=== PATIENT | female | born 1930 | race Caucasian/White ===

== ENCOUNTER 2017-03-22 11:55 | Inpatient (IN) ==
--- NOTE | 2017-03-22 12:39 | Emergency Department Note ---
Disposition Clinical Impression: GI bleed Qualifiers: GI bleed type/associated pathology: unspecified gastrointestinal hemorrhage type Qualified Code(s): K92.2 - Gastrointestinal hemorrhage, unspecified Anemia Qualifiers: Anemia type: other cause Other causes of anemia: other cause, not classified Qualified Code(s): D64.89 - Other specified anemias Renal failure, chronic Qualifiers: Chronic kidney disease stage: stage 3 (moderate) Qualified Code(s): N18.3 - Chronic kidney disease, stage 3 (moderate) Disposition: Admitted As Inpatient Referrals: NO,PCP [Primary Care Provider] - Forms: ED Satisfaction Letter Female Urogenital HPI - General Chief complaint: ED Vaginal Bleeding Stated complaint: Vaginal Bleeding Time Seen by Provider: 03/22/17 12:14 Source: patient, EMS Limitations: no limitations Nursing Notes Reviewed: Yes Vital Signs Reviewed: Yes - History of Present Illness HPI Narrative: Patient does have dementia and is not able to give adequate history secondary to her medical condition. I did see the patient immediately upon arrival and also spoke with the paramedics who states the patient did have a large amount of vaginal bleeding which is why she was sent here. The patient said she is here because of left hip pain and states that this is not a new pain. She thinks she is at the long-term still at [facility]. She denies any abdominal pain - Related Data Home Medications Medication Instructions Recorded Confirmed Carvedilol [Carvedilol] BID 02/20/17 Cholecalciferol (Vitamin D3) 2,000 unit PO 02/20/17 [Vitamin D] Furosemide [Lasix] 02/20/17 Lutein Extract/Zeaxanthin Ext 02/20/17 [Lutein 15 mg Softgel] Magnesium Oxide [Magnesium Oxide] 02/20/17 Multivit-Min/FA/Lycopen/Lutein 02/20/17 [Centrum Silver Tablet] Potassium [Potassium] 2 tab 02/20/17 Pyridoxine HCl [Vitamin B-6] 02/20/17 Rutin/Quercetin/Bioflav/Bilber 02/20/17 [Bilberry Extract 40 mg Cap] hydrALAZINE [HydrALAZINE] 25 mg PO Q6HR 02/20/17 02/20/17 Previous Rx's Medication Instructions Recorded Ciprofloxacin HCl [Cipro] 500 mg PO BID #14 tablet 02/20/17 Allergies Allergy/AdvReac Type Severity Reaction Status Date / Time amlodipine Allergy Anaphylaxis Verified 02/20/17 15:38 atenolol Allergy Anaphylaxis Verified 02/20/17 15:38 codeine Allergy Weakness Verified 02/20/17 15:38 Erythromycin Base Allergy Anaphylaxis Verified 02/20/17 15:38 Oxycodone Allergy Anaphylaxis Verified 02/20/17 15:38 Penicillins Allergy Anaphylaxis Verified 02/20/17 15:27 Sulfanilamide Allergy Blister Verified 02/20/17 15:38 Tetanus Vaccines and Toxoid Allergy See Verified 02/20/17 15:38 Comments Review of Systems: Unable to obtain secondary to patient's medical condition of dementia Past Medical History - Past Medical History Medical history: Reports: atrial fibrillation, CHF, dementia, diabetes, hyperlipidemia, hypertension, osteoporosis Surgical history: Reports: breast surgery, cataract, cholecystectomy Psychiatric history: Reports: other - Social History Smoking Status: Never smoker Smokeless Tobacco Status: No Alcohol use: Reports: none Drug use: Reports: none Physical Exam Rectal exam does reveal brown stool necessary for Hemoccult. A urine straight catheter will be begun as it is likely hemorrhagic cystitis. There is no blood seen in the vaginal vault appears one drop of red blood on the depends that the area of the urethra so this will be further evaluated. The patient is resting comfortably. No distress. 1239 - General Limitations: no limitations General appearance: alert, in no apparent distress Course Vital Signs Temperature 98.1 F 03/22/17 11:59 Pulse Rate 70 03/22/17 11:59 Respiratory Rate 17 03/22/17 11:59 Blood Pressure 148/85 03/22/17 11:59 O2 Sat by Pulse Oximetry 99 03/22/17 11:59 Temperature 98.1 F 03/22/17 11:59 Pulse Rate 78 03/22/17 16:50 Respiratory Rate 16 03/22/17 16:50 Blood Pressure 164/73 03/22/17 16:50 O2 Sat by Pulse Oximetry 94 03/22/17 16:53 Oxygen Delivery Oxygen Delivery Nasal Cannula Urogenital-Female - MDM Narrative Medical decision making narrative: The patient did not have any blood in the vaginal vault. The urine does not show any evidence of blood. The stool is Hemoccult positive but brown. I did speak with the guardian who tells me that the patient had a massive amount before she arrived soaking sheet after she of her bedclothes as well as her depends. His likely GI bleed in etiology. Hemoglobin is stable but she does have anemia. She does have chronic renal failure and creatinine is not significantly changed from baseline. Vital signs are stable this time. I did speak with the hospitalist and discussed the patient for admission with consideration of GI consultation. Does likely is a lower GI bleed so she is not started on a proton pump inhibitor. She is not on anticoagulation at this time. Type and screen will be done. 1049 - Medical Records Medical records reviewed: Yes I reviewed the patient's medical records. - Lab Data Lab results reviewed: Yes I reviewed the patient's lab results. Result diagrams: 03/22/17 16:04 03/22/17 16:04 Lab Results 03/22/17 03/22/17 03/22/17 Range/Units 14:24 14:40 16:04 WBC 13.3 H (4.3-11.1) K/mcL RBC 3.06 L (3.82-4.97) M/mcL Hgb 10.5 L (11.5-15.4) g/dL Hct 31.8 L (35.3-44.9) % MCV 103.9 H (83.0-100.0) fL MCH 34.3 H (28.0-33.3) pg MCHC 33.0 (31.6-35.5) g/dL RDW 14.1 (11.5-14.5) % Plt Count 199 (140-400) K/mcL MPV 10.0 (9.4-12.4) fL Sodium (136-145) mEq/L Potassium (3.5-4.5) mEq/L Chloride (98-109) mEq/L Carbon Dioxide (19-29) mEq/L BUN (7-20) mg/dL Creatinine (0.57-1.11) mg/dL Est GFR ( Amer) (> 60) Est GFR (Non-Af Amer) (> 60) BUN/Creatinine Ratio (6-26) Glucose (70-99) mg/dL Calculated Osmolality (280-300) Calcium (8.6-10.8) mg/dL Urine Color Yellow (Yellow) Urine Clarity Cloudy A (Clear) Urine pH 6.0 (5.0-8.0) pH Units Ur Specific [place] 1.014 (1.010-1.025) Urine Protein 100 H (Neg-Trace) mg/dL Urine Glucose (UA) Normal (Normal) mg/dL Urine Ketones Negative (Negative) mg/dL Urine Blood Negative (Negative) Urine Nitrite Negative (Negative) Urine Bilirubin Negative (Negative) Urine Urobilinogen Normal (Normal) mg/dL Ur Leukocyte Esterase Negative (Negative) Urine Microscopic RBC 0-3 (0-3) per hpf Urine Microscopic WBC 0-3 (0-3) per hpf Ur Squamous Epith Cells Moderate H (None-Few) per lpf Urine Bacteria Many H (None-Few) per hpf Hyaline Casts None Seen (None-Few) per lpf Stool Occult Blood Positive A (Negative) 03/22/17 Range/Units 16:04 WBC (4.3-11.1) K/mcL RBC (3.82-4.97) M/mcL Hgb (11.5-15.4) g/dL Hct (35.3-44.9) % MCV (83.0-100.0) fL MCH (28.0-33.3) pg MCHC (31.6-35.5) g/dL RDW (11.5-14.5) % Plt Count (140-400) K/mcL MPV (9.4-12.4) fL Sodium 138 (136-145) mEq/L Potassium 3.9 (3.5-4.5) mEq/L Chloride 94 L (98-109) mEq/L Carbon Dioxide 32 H (19-29) mEq/L BUN 50 H (7-20) mg/dL Creatinine 2.58 H (0.57-1.11) mg/dL Est GFR ( Amer) 21 L (> 60) Est GFR (Non-Af Amer) 18 L (> 60) BUN/Creatinine Ratio 19 (6-26) Glucose 104 H (70-99) mg/dL Calculated Osmolality 300 (280-300) Calcium 9.0 (8.6-10.8) mg/dL Urine Color (Yellow) Urine Clarity (Clear) Urine pH (5.0-8.0) pH Units Ur Specific [place] (1.010-1.025) Urine Protein (Neg-Trace) mg/dL Urine Glucose (UA) (Normal) mg/dL Urine Ketones (Negative) mg/dL Urine Blood (Negative) Urine Nitrite (Negative) Urine Bilirubin (Negative) Urine Urobilinogen (Normal) mg/dL Ur Leukocyte Esterase (Negative) Urine Microscopic RBC (0-3) per hpf Urine Microscopic WBC (0-3) per hpf Ur Squamous Epith Cells (None-Few) per lpf Urine Bacteria (None-Few) per hpf Hyaline Casts (None-Few) per lpf Stool Occult Blood (Negative)
[2017-03-22 14:33] LABS: Bilirubin,Urine Negative (Negative); Blood,Urine Negative (Negative); Clarity,Urine Cloudy (Clear); Color,Urine Yellow (Yellow); Glucose,Urine (UA) Normal (Normal); Ketones,Urine Negative (Negative); Leukocyte Esterase,Urine Negative (Negative); Nitrite,Urine Negative (Negative); Protein,Urine 100 mg/dL (Neg-Trace); Specific Gravity,Urine 1.014 (1.010-1.025); Urobilinogen,Urine Normal (Normal)
[2017-03-22 14:36] LABS: Bacteria,Urine Many per hpf (None-Few); Hyaline Casts,Urine None Seen per lpf (None-Few); RBC,Urine 0-3 per hpf (0-3); Squamous Epithelial Cell,Urine Moderate per lpf (None-Few); WBC,Urine 0-3 per hpf (0-3)
[2017-03-22 16:13] LABS: Hematocrit 31.8 % (35.3-44.9); Hemoglobin 10.5 g/dL (11.5-15.4); Mean Corpuscular Hemoglobin 34.3 pg (28.0-33.3); Mean Corpuscular Volume 103.9 fL (83.0-100.0); Platelet Count 199 K/mcL (140-400); Red Blood Count 3.06 M/mcL (3.82-4.97); Red Cell Distribution Width 14.1 % (11.5-14.5)
[2017-03-22 16:26] LABS: Potassium 3.9 mEq/L (3.5-4.5)
[2017-03-22] MEDS ORDERED: Naloxone 0.4 MG/ML INJ IVP PRN (19:53)
[2017-03-22] MEDS ORDERED: Acetaminophen 325 MG TABLET PO PRN (19:53)
[2017-03-22] MEDS ORDERED: Levofloxacin 750 MG/150 ML 750 MG/150 ML BAG IVPB ONE (20:00)
--- NOTE | 2017-03-22 20:27 | Internal Med History&Physical ---
<VictorianoOni Gentile - Last Filed: 03/22/17 21:14> Date of Encounter: 03/22/17 Time of Encounter: 19:30 Assessment and Plan (1) GI bleed Current visit: Yes Status: Acute Assess: Mrs. Maynard presents with chief complaint of large amount of bleeding in her depends and that sheets. Patient states she has not felt well for the past several days and has vomited for the past 2 days with chills but no fever. Patient also reports abdominal pain and cramping over the same time period. Urinalysis is negative for blood, however rectal exam is positive for Hemoccult. Plan: H/H Q8 Type and screen ordered GI consult ordered and discussed with Dr. Walls who will see patient Monitor patient and vital signs Monitor patient for continued signs of bleeding Qualifiers: GI bleed type/associated pathology: unspecified gastrointestinal hemorrhage type Qualified Code(s): K92.2 - Gastrointestinal hemorrhage, unspecified (2) Weakness Current visit: Yes Status: Acute Assess: Patient presents with complaint of N/V for the past two days as well as GI bleed. Patient reports that she is weaker than usual due to current symptoms and status. Plan: Falls precautions Sg-[id number] only Bed rest with bedside commode with assist only Monitor patient (3) Leukocytosis Current visit: Yes Status: Acute Assess: Patient presents with current WBC of 13.3 on admission to ED from initial blood draw with source of infection currently unknown. Plan: Lactic acid ordered Blood cultures ordered x2 Urine culture ordered IV Levaquin 750 mg daily ordered Follow-up labs ordered Qualifiers: Leukocytosis type: unspecified Qualified Code(s): D72.829 - Elevated white blood cell count, unspecified (4) Nausea & vomiting Current visit: Yes Status: Acute Assess: Patient presents with acute nausea and vomiting over the past two days. Plan: IV Zofran ordered IV Protonix 40 mg daily ordered Clear liquid diet as tolerated Falls precautions/[id number]-[id number]/Bed rest with bedside commode with assist status due to weakness Qualifiers: Vomiting type: cyclical vomiting Vomiting Intractability: non-intractable Qualified Code(s): G43.A0 - Cyclical vomiting, not intractable (5) Atrial fibrillation Current visit: Yes Status: Chronic Assess: Patient has history of chronic atrial fibrillation. Plan: Aspirin therapy 81 mg enteric coated Continuous cardiac telemetry EKG ordered STAT Qualifiers: Atrial fibrillation type: chronic Qualified Code(s): I48.2 - Chronic atrial fibrillation (6) CHF (congestive heart failure) Current visit: Yes Status: Chronic Assess: Patient presents with history of chronic congestive heart failure. Presently, patient does not have bilateral pedal edema of the LE. Plan: Continue Lasix PO Qualifiers: Congestive heart failure type: unspecified congestive heart failure type Congestive heart failure chronicity: unspecified congestive heart failure chronicity Qualified Code(s): I50.9 - Heart failure, unspecified (7) Anemia Current visit: Yes Status: Chronic Assess: Patient presents with history of chronic anemia. Current Hgb is 10.5 and Hgb is 31.8. Plan: H/H Q8 ordered Type and screen ordered Qualifiers: Anemia type: other cause Other causes of anemia: other cause, not classified Qualified Code(s): D64.89 - Other specified anemias (8) Renal failure, chronic Current visit: Yes Status: Chronic Assess: Patient presents with chronic renal failure with current GFR 18, BUN of 50, and creatinine of 2.58 which is not far from her baseline. Plan: Judicious use of IV fluids 50 mL/HR Monitor I&O Monitor daily weight Qualifiers: Chronic kidney disease stage: stage 4 (severe) Qualified Code(s): N18.4 - Chronic kidney disease, stage 4 (severe) (9) DVT prophylaxis Current visit: Yes Status: Acute Assess: Patient to be placed on DVT prophylaxis due to admission protocol, bed rest status, and current atrial fibrillation. Pharmacologic DVT prophylaxis is contraindicated due to current GI bleeding status. Plan: SCDs ordered for LE bilaterally Internal Medicine - H&P: HPI Chief complaint: GI bleed Admitted From: Emergency Dept Plans for Post Hospital Care: Home History of present illness: Mrs. Maynard is a 86 year old female who presents from the ED with chief complaint of large amount of bleeding in her depends and that sheets. Patient states she has not felt well for the past several days and has vomited for the past 2 days with chills but no fever. Patient also reports abdominal pain and cramping over the same time period. Urinalysis is negative for blood, however rectal exam is positive for Hemoccult. Upon examination in the ED there is no blood seen in the vaginal vault. has history of anemia with recent hemoglobin level at 10.5 and hematocrit of 31.8. Patient is currently not on anticoagulation due to history of falls. Mrs. Maynard has a history of atrial fibrillation, CHF, dementia, insulin-dependent diabetes, hyperlipidemia, hypertension, anemia, and osteoporosis. She states she has left hip pain that radiates down her leg. She denies any recent illness, diarrhea, fever, generalized weakness, or shortness of breath. Patient currently has a WBC of 13.3. Patient is at high risk for further morbidity due to current GI bleed and infection of unknown source and will be placed as inpatient status with orders for continuous cardiac telemetry due to current atrial fibrillation, clear liquid diet due to nausea and vomiting, blood and urine cultures to identify infection source, IV Zofran and Protonix for GI, IV Levaquin 750 mg daily for infection coverage, H/H Q6, type and screen, iron study, and judicious use of IV fluids at 50 mL/HR, and GI consult was ordered and placed with Dr. Walls who will see patient. Patient to be monitored closely. Time spent with patient greater than 40 minutes. Past Med Surg Social Fam HX - Past Medical History Source: patient Medical history: atrial fibrillation, CHF, dementia, diabetes, hyperlipidemia, hypertension, osteoporosis Psychiatric history: other (Dementia) - Past Surgical History Surgical History: breast surgery (Bilateral mastectomies), cataract, cholecystectomy - Social History Smoking Status: Never smoker Smokeless Tobacco Status: No Alcohol use: none Drug use: none Current living situation: Home, With Family Activity Level: Uses cane/walker Recent Out of Country Travel Within the Last 8 Weeks: No Exposure or Possible Exposure to Illness During Travel: No - Family History Father Race: Family Member Ethnicity: Non- Living Status: Age at : 70 Cause of : HD Hx Family Cardiac Disorders: Yes (HD) Mother Race: Family Member Ethnicity: Non- Living Status: Age at : 92 Cause of : Complications of DM Hx Family Endocrine Disorder: Yes (DM) Sister Race: Family Member Ethnicity: Non- Living Status: Still Living Hx Family Cardiac Disorders: Yes (HD) Internal Medicine - H&P: Meds Carvedilol [Carvedilol] 12.5 mg PO BID 02/20/17 [History] Cholecalciferol (Vitamin D3) [Vitamin D] 2,000 unit PO DAILY 02/20/17 [History] Furosemide [Lasix] 40 mg PO DAILY 02/20/17 [History] Lutein Extract/Zeaxanthin Ext [Lutein 15 mg Softgel] 15 mg PO BID 02/20/17 [ History] Magnesium Oxide [Magnesium Oxide] 250 mg PO DAILY 02/20/17 [History] Multivit-Min/FA/Lycopen/Lutein [Centrum Silver Tablet] 1 tab PO DAILY 02/20/17 [ History] Potassium [Potassium] 99 mg PO DAILY 02/20/17 [History] Pyridoxine HCl [Vitamin B-6] 50 mg PO DAILY 02/20/17 [History] Rutin/Quercetin/Bioflav/Bilber [Bilberry Extract 40 mg Cap] 40 mg PO DAILY 02/20 [History] hydrALAZINE [HydrALAZINE] 25 mg PO Q6HR 02/20/17 [History] Glucosamine/D3/Boswellia Jesenia [Osteo Bi-Flex Tablet] 1 tab PO DAILY 03/22/17 [ History] Allergies amlodipine Allergy (Verified 02/20/17 15:38) Anaphylaxis atenolol Allergy (Verified 02/20/17 15:38) Anaphylaxis codeine Allergy (Verified 02/20/17 15:38) Weakness Erythromycin Base Allergy (Verified 02/20/17 15:38) Anaphylaxis Oxycodone Allergy (Verified 02/20/17 15:38) Anaphylaxis Penicillins Allergy (Verified 02/20/17 15:27) Anaphylaxis Sulfanilamide Allergy (Verified 02/20/17 15:38) Blister Tetanus Vaccines and Toxoid Allergy (Verified 02/20/17 15:38) See Comments All Systems PM: A 10-system review of systems was performed and is negative for pertinent findings except as documented above in the HPI. - Constitutional Constitutional: as per HPI, chills, falls, no fever(s), no night sweats - EENT Eyes: no change in vision, no discharge, no pain, no photophobia Ears: no ear discharge, no ear pain, no tinnitus Nose, mouth and throat: no dysphagia, no nasal discharge, no neck pain, no sore throat - Breasts Breasts: as per HPI - Cardiovascular Cardiovascular ROS IM: as per HPI, irregular heart rhythm, no chest pain, no diaphoresis, no dyspnea, no lightheadedness, no palpitations, no syncope - Respiratory Respiratory: no cough, no dyspnea, no wheezing, no excessive phlegm production - Gastrointestinal Gastrointestinal: as per HPI, abdominal pain, constipation, hematochezia, nausea , vomiting - Genitourinary Genitourinary: as per HPI, urinary incontinence, no change in urinary stream, no dysuria, no flank pain, no hematuria Menstruation: as per HPI, post menopausal - Musculoskeletal Musculoskeletal ROS IM: as per HPI, other (Left hip pain) - Integumentary Integumentary IM: no rash, no unusual bruising - Neurological Neurological ROS: as per HPI, confusion, frequent falls - Psychiatric Psychiatric: as per HPI - Endocrine Endocrine IM: as per HPI - Hematologic/Lymphatic Hematologic/Lymphatic: no easy bruising - Allergic/Immunologic Allergic/Immunologic: as per HPI - Constitutional Vitals: Temp Pulse Resp BP Pulse Ox 98.7 F 70 15 155/70 97 03/22/17 19:54 03/22/17 19:54 03/22/17 19:54 03/22/17 19:54 03/22/17 19:54 General appearance: Present: cooperative, A&O X 2, pleasant, no acute distress, answers questions appropriately (With several attempts) - Head Head exam: Present: atraumatic, normocephalic - Eye Eye exam: Present: PERRL, conjuntiva pink, sclera anicteric Pupils: Present: PERRL - ENT ENT exam: Present: normal exam, normal external ear exam - Neck Neck exam general surgery: Present: supple, trachea midline. Absent: lymphadenopathy - Respiratory Respiratory exam: Present: CTAB. Absent: accessory muscle use, rales, rhonchi, wheezes - Cardiovascular Cardiovascular exam: Present: irregular rhythm - GI/Abdominal GI/Abdominal exam: Present: guarding, tenderness - Rectal Rectal exam: Present: deferred - Additional comments: exam deferred. - Extremities Exam Extremities exam: Present: warm, radial pulses palpable and symetrical. Absent : calf tenderness, cyanotic, pedal edema - Back Exam Back exam: Present: normal inspection - Neurological Exam Neurological exam: Present: alert, altered, strengths equal and symetr throughout - Psychiatric Psychiatric exam: Present: normal affect, normal mood - Skin Skin exam: Present: dry, intact Internal Med - H&P Results - Labs CBC & Chem 7: 03/22/17 20:40 03/22/17 16:04 <[email or web address] - Last Filed: 03/22/17 22:23> Date of Encounter: 03/22/17 Internal Medicine - H&P: HPI History of present illness: Ms. Maynard is a 86 year old female All Systems PM: A 10-system review of systems was performed and is negative for pertinent findings except as documented above in the HPI. - Constitutional Vitals: Temp Pulse Resp BP Pulse Ox 98.7 F 70 15 155/70 97 03/22/17 19:54 03/22/17 19:54 03/22/17 19:54 03/22/17 19:54 03/22/17 19:54 Internal Med - H&P Results - Labs CBC & Chem 7: 03/22/17 20:40 03/22/17 16:04 Labs: Short CBC 03/22/17 Range/Units 20:40 Hgb 10.6 L (11.5-15.4) g/dL Hct 31.7 L (35.3-44.9) % - Attending Attestation I have seen and examined the patient around 8:15 PM. I discussed about the patient with nurse practitioner Oni Pastrana. I reviewed the orders and the note. Patient is a 86-year-old female who presented to the ED from [facility] for large amount of bleeding is seen today in her depends and sheets. Patient has a past medical history of atrial fibrillation, CHF, dementia, diabetes, hyperlipidemia, hypertension and osteoporosis. On examination patient is awake and alert. Not in any distress. She is able to answer some questions appropriately. She does have dementia. Patient does complain of having a few episodes of vomiting over the past few days, but denies fever. Patient denies chest pain denies shortness of breath denies dizziness denies palpitations denies abdominal pain or any other problems. Patient's fecal Hemoccult is positive. Her H&H is 10.6 and 31.7. We will monitor her H&H and will watch for any further bleeding. Patient is hemodynamically stable at present. We will continue all home medications. No family members at the time of admission. CODE STATUS discussed with patient, and she states she does not want to be resuscitated. She is a DNR/DNI status. Heart rate 70, blood pressure 154/70, O2 sat 97% on 2 L O2, heart S1-S2 positive , lungs bilateral good entry no wheezes or crackles. Abdomen soft nontender with no masses or guarding, extremities no edema. Patient is being admitted for GI bleed. Gastroenterology consult.
[2017-03-22] MEDS ORDERED: 0.9 % Sodium Chloride 1,000 ML IVC SCH (20:45)
[2017-03-22 21:08] LABS: Hematocrit 31.7 % (35.3-44.9); Hemoglobin 10.6 g/dL (11.5-15.4)
[2017-03-22] MEDS ORDERED: Aspirin Enteric Coated 81 MG Tablet PO SCH (21:15)
[2017-03-22 21:24] LABS: % Iron Saturation 9 % (15-50); Iron 19 mcg/dL (50-170); Transferrin 153 mg/dL (180-382)
[2017-03-22] MEDS: Pantoprazole 40 MG VIAL IVP SCH (21:42)
[2017-03-23] MEDS: hydrALAZINE 25 MG TABLET PO SCH ×4 (01:26→18:06)
[2017-03-23 06:19] LABS: Basophils % 0.4 %; Eosinophils # 0.1 K/mcL (0.0-0.6); Eosinophils % 0.6 %; Hematocrit 27.9 % (35.3-44.9); Hemoglobin 9.3 g/dL (11.5-15.4); Immature Granulocytes % 0.6 % (0-4); Lymphocytes % 9.5 %; Mean Corpuscular HGB Conc 33.3 g/dL (31.6-35.5); Mean Corpuscular Hemoglobin 34.4 pg (28.0-33.3); Mean Corpuscular Volume 103.3 fL (83.0-100.0); Monocytes # 0.9 K/mcL (0.0-1.3); Monocytes % 8.5 %; Neutrophils # 8.7 K/mcL (1.6-8.9); Platelet Count 149 K/mcL (140-400); Red Cell Distribution Width 14.1 % (11.5-14.5); Segmented Neutrophils % 80.4 %
[2017-03-23 06:22] LABS: INR 1.2; Prothrombin Time 13.5 Seconds (9.4-12.1)
[2017-03-23 06:24] LABS: Activated Partial Thrombo Time 26.7 Seconds (26.0-36.0)
[2017-03-23 06:33] LABS: Albumin 2.5 g/dL (3.5-5.0); Albumin/Globulin Ratio 0.7 (1.1-2.2); Bilirubin,Total 0.6 mg/dL (0.2-1.2); Calcium 8.3 mg/dL (8.6-10.8); Chol/HDL Ratio 4.5 (0-4.9); Globulin 3.5 g/dL (2.4-3.5); Potassium 3.6 mEq/L (3.5-4.5)
--- NOTE | 2017-03-23 08:05 | Internal Medicine Consult Note ---
Date of Encounter: 03/23/17 Time of Encounter: 08:03 - Assessment and Plan (1) GI bleed Current Visit: Yes Status: Acute Assessment and plan: There is melanotic to maroon stool on the glove with rectal exam..She has verbally consented the procedures, but have placed a call to the Daughter.. I have discussed risks of procedures with the patient and believe she understands. Qualifiers: GI bleed type/associated pathology: unspecified gastrointestinal hemorrhage type Qualified Code(s): K92.2 - Gastrointestinal hemorrhage, unspecified (2) Anemia Current Visit: Yes Status: Acute Assessment and plan: This is most likely acute on chronic with Blood Loss anemia Qualifiers: Anemia type: other cause Other causes of anemia: other cause, not classified Qualified Code(s): D64.89 - Other specified anemias (3) Atrial fibrillation Current Visit: Yes Status: Chronic Qualifiers: Atrial fibrillation type: chronic Qualified Code(s): I48.2 - Chronic atrial fibrillation (4) CKD (chronic kidney disease) stage 4, GFR 15-29 ml/min Current Visit: Yes Status: Acute (5) Dementia Current Visit: Yes Status: Acute Qualifiers: Dementia type: Alzheimer's disease Qualified Code(s): G30.1 - Alzheimer's disease with late onset; F02.80 - Dementia in other diseases classified elsewhere without behavioral disturbance Internal Medicine - CN: HPI - Data of Consult Patient: new to practice Requesting Physician: Fabian Donis MD - Consult Narrative Reason for consult: Possible GI Bleeding History of present illness: Ms. Maynard is a 86 year old female who presented from [facility] with what may be GI bleeding.. apparently there was blood on sheets at the ECF, then brown hemocult positive stool in the ED.. Mrs. Maynard is a poor historian really unable to give much information. Past Med Surg Social Fam HX - Past Medical History Medical history: atrial fibrillation, CHF, dementia, diabetes, hyperlipidemia, hypertension, osteoporosis Psychiatric history: other - Past Surgical History Surgical History: breast surgery, cataract, cholecystectomy - Social History Smoking Status: Never smoker Smokeless Tobacco Status: No Alcohol use: none Drug use: none - Family History Father Race: Family Member Ethnicity: Non- Living Status: Age at : 70 Cause of : HD Hx Family Cardiac Disorders: Yes (HD) Mother Race: Family Member Ethnicity: Non- Living Status: Age at : 92 Cause of : Complications of DM Hx Family Endocrine Disorder: Yes (DM) Sister Adopted: No Race: Family Member Ethnicity: Non- Twin of Family Member: Yes, Identical Living Status: Cause of : diabetes and heart attack Hx Family Cardiac Disorders: Yes Hx Family Respiratory Disorders: Yes Hx Family Cancer: No Hx Family GI Disorders: No Hx Family Genitourinary Disorders: No Hx Family Endocrine Disorder: Yes Hx Family Musculoskeletal Disorders: No Hx Family Neuromuscular Disorders: No Hx Family Neurologic Disorders: No Hx Family HEENT Disorders: No Hx Family Autoimmune Disorders: No Hx Family Reproductive Disorders: No Hx Family Psychosocial Disorders: No Hx Family Medical Disorders: No ROS unobtainable: due to mental status Internal Medicine - CN: Meds Carvedilol [Carvedilol] 12.5 mg PO BID 02/20/17 [History] Cholecalciferol (Vitamin D3) [Vitamin D] 2,000 unit PO DAILY 02/20/17 [History] Furosemide [Lasix] 40 mg PO DAILY 02/20/17 [History] Lutein Extract/Zeaxanthin Ext [Lutein 15 mg Softgel] 15 mg PO BID 02/20/17 [ History] Magnesium Oxide [Magnesium Oxide] 250 mg PO DAILY 02/20/17 [History] Multivit-Min/FA/Lycopen/Lutein [Centrum Silver Tablet] 1 tab PO DAILY 02/20/17 [ History] Potassium [Potassium] 99 mg PO DAILY 02/20/17 [History] Pyridoxine HCl [Vitamin B-6] 50 mg PO DAILY 02/20/17 [History] Rutin/Quercetin/Bioflav/Bilber [Bilberry Extract 40 mg Cap] 40 mg PO DAILY 02/20 [History] hydrALAZINE [HydrALAZINE] 25 mg PO Q6HR 02/20/17 [History] Glucosamine/D3/Boswellia Jesenia [Osteo Bi-Flex Tablet] 1 tab PO DAILY 03/22/17 [ History] Allergies amlodipine Allergy (Verified 02/20/17 15:38) Anaphylaxis atenolol Allergy (Verified 02/20/17 15:38) Anaphylaxis codeine Allergy (Verified 02/20/17 15:38) Weakness Erythromycin Base Allergy (Verified 02/20/17 15:38) Anaphylaxis Oxycodone Allergy (Verified 02/20/17 15:38) Anaphylaxis Penicillins Allergy (Verified 02/20/17 15:27) Anaphylaxis Sulfanilamide Allergy (Verified 02/20/17 15:38) Blister Tetanus Vaccines and Toxoid Allergy (Verified 02/20/17 15:38) See Comments Internal Medicine - CN: Exam - Constitutional Vitals: Temp Pulse Resp BP Pulse Ox 98.7 F 67 14 104/62 99 03/23/17 07:13 03/23/17 07:13 03/23/17 07:13 03/23/17 07:13 03/23/17 07:13 General appearance IM: Present: A&O X 1, pleasant, obese. Absent: no acute distress - Respiratory Respiratory exam: Present: rhonchi Additional comments: Rhonchi to the L base. - Cardiovascular Cardiovascular exam IM: Present: irregular rhythm - GI/Abdominal GI/Abdominal exam IM: Present: firm, hypoactive bowel sounds, no peritoneal signs. Absent: guarding - Rectal Rectal exam: Present: deferred, black stool Internal Medicine - CN: Reslt - Labs CBC & Chem 7: 03/23/17 06:09 03/23/17 06:09 Labs: Short CBC 03/22/17 03/23/17 Range/Units 20:40 06:09 WBC 10.8 (4.3-11.1) K/mcL Hgb 10.6 L 9.3 L (11.5-15.4) g/dL Hct 31.7 L 27.9 L (35.3-44.9) % Plt Count 149 (140-400) K/mcL Neutrophils # 8.7 (1.6-8.9) K/mcL BMP 03/23/17 06:09 Sodium 139 Potassium 3.6 Chloride 97 L Carbon Dioxide 33 H BUN 48 H Creatinine 2.52 H Glucose 80 Calcium 8.3 L Liver Function 03/23/17 Range/Units 06:09 Total Bilirubin 0.6 (0.2-1.2) mg/dL AST 21 (5-34) Units/L ALT 7 (0-55) Units/L Alkaline Phosphatase 47 (38-126) Units/L Albumin 2.5 L (3.5-5.0) g/dL - ABG Interpretation ABG results: PT/INR, D-dimer PT 13.5 Seconds (9.4-12.1) H 03/23/17 06:09 Consult Discharge Plan - Plan Instructions: Heart Failure (DC) Referrals: Oni Garg, RENETTA [Advanced Practice Nurse] -
[2017-03-23] MEDS ORDERED: SODIUM CHLORIDE/NAHCO3/KCL/PEG 4,000 ML SOLN.RECON PO ONE (08:15)
[2017-03-23] MEDS: Magnesium Oxide 400 MG TABLET PO SCH (08:40)
[2017-03-23] MEDS: Pantoprazole 40 MG VIAL IVP SCH (08:40)
[2017-03-23] MEDS: Furosemide 40 MG TABLET PO SCH (08:40)
[2017-03-23] MEDS ORDERED: Iron Dextran Complex 100 MG in 0.9 % Sodium Chloride 500 ML IVPB ONE (08:54)
[2017-03-23] MEDS ORDERED: Pyridoxine (B-6) 50 MG TABLET PO SCH (09:00)
[2017-03-23] MEDS ORDERED: Cholecalciferol (D-3) 1,000 UNIT TABLET PO SCH (09:00)
--- NOTE | 2017-03-23 17:38 | Internal Med Progress Note ---
Date of Encounter: 03/23/17 Time of Encounter: 17:36 - Assessment and plan (1) GI bleed Current Visit: Yes Status: Acute Qualifiers: GI bleed type/associated pathology: unspecified gastrointestinal hemorrhage type Qualified Code(s): K92.2 - Gastrointestinal hemorrhage, unspecified (2) Anemia Current Visit: Yes Status: Acute Qualifiers: Anemia type: other cause Other causes of anemia: other cause, not classified Qualified Code(s): D64.89 - Other specified anemias (3) Renal failure, chronic Current Visit: Yes Status: Chronic Qualifiers: Chronic kidney disease stage: stage 4 (severe) Qualified Code(s): N18.4 - Chronic kidney disease, stage 4 (severe) (4) Atrial fibrillation Current Visit: Yes Status: Chronic Qualifiers: Atrial fibrillation type: chronic Qualified Code(s): I48.2 - Chronic atrial fibrillation (5) CHF (congestive heart failure) Current Visit: Yes Status: Chronic Qualifiers: Congestive heart failure type: unspecified congestive heart failure type Congestive heart failure chronicity: unspecified congestive heart failure chronicity Qualified Code(s): I50.9 - Heart failure, unspecified (6) DVT prophylaxis Current Visit: Yes Status: Acute - Subjective Interval history: Carla Maynard is a 86-year-old female admitted for GI bleed. She presents from the ED with chief complaint of large amount of bleeding in her depends and that sheets. Patient states she has not felt well for the past several days and has vomited for the past 2 days with chills but no fever. Patient also reports abdominal pain and cramping over the same time period. Urinalysis is negative for blood, however rectal exam is positive for Hemoccult patient is a poor historian. Hemoglobin is essentially unchanged in drop overnight from 10-9 while she is on IV fluid. Examination is unremarkable. - Constitutional Vitals: Temp Pulse Resp BP Pulse Ox 97.4 F L 70 14 132/62 96 03/23/17 14:47 03/23/17 14:47 03/23/17 14:47 03/23/17 14:47 03/23/17 14:47 General appearance: Present: A&O X 1, pleasant, obese. Absent: no acute distress - Head Head exam: Present: atraumatic, normocephalic - Eye Eye exam: Present: PERRL, conjuntiva pink, sclera anicteric Pupils: Present: PERRL - Neck Neck exam general surgery: Present: supple, trachea midline. Absent: lymphadenopathy - Respiratory Respiratory exam: Present: CTAB. Absent: accessory muscle use, rales, rhonchi, wheezes - Cardiovascular Cardiovascular exam: Present: RRR, +S1, +S2. Absent: diastolic murmur, gallop, rubs, systolic murmur - GI/Abdominal GI/Abdominal exam: Present: normal bowel sounds, soft, no peritoneal signs. Absent: distended, tenderness - Extremities Exam Extremities exam: Present: warm, radial pulses palpable and symetrical. Absent : calf tenderness, cyanotic, pedal edema - Neurological Exam Neurological exam: Present: CN II-XII intact, oriented X3, no focal deficits. Absent: pronater drift, facial droop, speech deficit - Skin Skin exam: Present: dry, intact Internal Medicine: Result - Labs CBC & Chem 7: 03/23/17 06:09 03/23/17 06:09 Labs: Short CBC 03/22/17 03/23/17 Range/Units 20:40 06:09 WBC 10.8 (4.3-11.1) K/mcL Hgb 10.6 L 9.3 L (11.5-15.4) g/dL Hct 31.7 L 27.9 L (35.3-44.9) % Plt Count 149 (140-400) K/mcL Neutrophils # 8.7 (1.6-8.9) K/mcL BMP 03/23/17 06:09 Sodium 139 Potassium 3.6 Chloride 97 L Carbon Dioxide 33 H BUN 48 H Creatinine 2.52 H Glucose 80 Calcium 8.3 L Liver Function 03/23/17 Range/Units 06:09 Total Bilirubin 0.6 (0.2-1.2) mg/dL AST 21 (5-34) Units/L ALT 7 (0-55) Units/L Alkaline Phosphatase 47 (38-126) Units/L Albumin 2.5 L (3.5-5.0) g/dL - ABG Interpretation ABG results: PT/INR, D-dimer PT 13.5 Seconds (9.4-12.1) H 03/23/17 06:09 Consult Discharge Plan - Plan Instructions: Heart Failure (DC) Referrals: Oni Garg CNP [Advanced Practice Nurse] -
[2017-03-23] MEDS: Ondansetron 4 MG/2 ML VIAL IVP PRN (20:01)
[2017-03-24 01:03] LABS: Basophils % 0.3 %; Eosinophils % 0.4 %; Hematocrit 28.3 % (35.3-44.9); Hemoglobin 9.2 g/dL (11.5-15.4); Immature Granulocytes % 0.7 % (0-4); Lymphocytes # 1.3 K/mcL (0.6-4.6); Lymphocytes % 12.6 %; Mean Corpuscular HGB Conc 32.5 g/dL (31.6-35.5); Mean Corpuscular Hemoglobin 33.8 pg (28.0-33.3); Mean Platelet Volume 9.7 fL (9.4-12.4); Monocytes % 9.1 %; Neutrophils # 8.2 K/mcL (1.6-8.9); Platelet Count 153 K/mcL (140-400); Red Blood Count 2.72 M/mcL (3.82-4.97); Red Cell Distribution Width 13.9 % (11.5-14.5); Segmented Neutrophils % 76.9 %
[2017-03-24] MEDS: hydrALAZINE 25 MG TABLET PO SCH ×4 (01:09→19:35)
[2017-03-24 01:18] LABS: Albumin 2.5 g/dL (3.5-5.0); Albumin/Globulin Ratio 0.7 (1.1-2.2); Bilirubin,Total 0.5 mg/dL (0.2-1.2); Calcium 7.9 mg/dL (8.6-10.8); Globulin 3.4 g/dL (2.4-3.5); Potassium 3.6 mEq/L (3.5-4.5); Total Protein 5.9 g/dL (6.0-8.3)
[2017-03-24] MEDS ORDERED: *HR* Midazolam HCl 5 MG/5 ML VIAL IVP ONE (07:07)
[2017-03-24] MEDS ORDERED: *HR* FentaNYL (PF) 100 MCG/2 ML VIAL ONE (07:07)
[2017-03-24] MEDS ORDERED: Tetracaine/Benzocaine/Butamben 200MG/SPRAY (100SPY/BOT) MM ONE (07:31)
[2017-03-24] MEDS ORDERED: *HR* Midazolam HCl 2 MG/2 ML VIAL IVP PRN (07:31)
[2017-03-24] MEDS ORDERED: Simethicone 40 MG/0.6 ML MLS IR ONE (07:31)
--- NOTE | 2017-03-24 07:32 | Pre-Sedation Evaluation ---
Pre-sedation evaluation - Pre-sedation checklist Date of procedure: 03/24/17 Procedure: EGD/colonosccopy Recent Vitals: Last Vital Signs Temp 98.3 F 03/24/17 04:05 Pulse 69 03/24/17 04:05 Resp 14 03/24/17 04:05 BP 110/56 03/24/17 04:05 Pulse Ox 99 03/24/17 04:05 H&P (including ROS) documented in medical record: Yes Previous reaction to sedatives/anesthetics: No Dietary Status: NPO 6 hours prior to procedure Dentition: No loose teeth or bridges Possible difficult airway: No ASA Classification *see protocol: CLASS III-Severe systemic disease
[2017-03-24] MEDS: *HR* FentaNYL (PF) 100 MCG/2 ML VIAL IVP PRN ×2 (07:39→07:49)
--- NOTE | 2017-03-24 08:09 | Event Note ---
Date of Encounter: 03/24/17 Time of Encounter: 08:06 Endoscopy Findings: EGD.. Normal Colon 1. Severe L sided colitis, suspicious for Ischemia Samples taken for infection/ Biopsies done Tx. will be antibiotics, ASA and Supportive Care Would not give anti-coagulation given Age, co-morbids. Can be discharged when abd. pain subsides and tolerating diet.
[2017-03-24] MEDS: Aspirin 81 MG TAB.CHEW PO SCH (09:02)
[2017-03-24] MEDS: Magnesium Oxide 400 MG TABLET PO SCH (09:02)
[2017-03-24] MEDS: Furosemide 40 MG TABLET PO SCH (09:02)
[2017-03-24] MEDS: Pantoprazole 40 MG VIAL IVP SCH (09:03)
--- NOTE | 2017-03-24 09:56 | Electrocardiograph Report ---
[address] [place] [address] Test Date: 2017-03-22 Pat Name: Carla Maynard Department: 115 Room: 3A31 Gender: F Electrophonic Engineer: SRINIVASA : [id number] Requested By: Oni Pastrana Order Number: [id number] Reading MD: Angelita Perez Measurements Intervals [place] Rate: 67 P: UT: 0 QRS: -59 QRSD: 134 T: 88 QT: 442 QTc: 458 Interpretive Statements ATRIAL FIBRILLATION INTRAVENTRICULAR CONDUCTION DELAY LEFT ANTERIOR FASCICULAR BLOCK Electronically Signed On 03-24-2017 9:54:54 EDT by Angelita Perez
[2017-03-24] MEDS ORDERED: Iron Dextran Complex 200 MG in 0.9 % Sodium Chloride 500 ML IVPB ONE (10:03)
[2017-03-24] MEDS ORDERED: SODIUM CHLORIDE 0.9% IVPB ONE (11:15)
[2017-03-24] MEDS ORDERED: IRON DEXTRAN COMPLEX IVPB ONE (11:15)
[2017-03-24 14:14] LABS: Bilirubin,Urine Negative (Negative); Blood,Urine Negative (Negative); Clarity,Urine Cloudy (Clear); Color,Urine Yellow (Yellow); Glucose,Urine (UA) Normal (Normal); Ketones,Urine Negative (Negative); Leukocyte Esterase,Urine Moderate (Negative); Nitrite,Urine Negative (Negative); PH,Urine 6.5 pH Units (5.0-8.0); Protein,Urine 100 mg/dL (Neg-Trace); Specific Gravity,Urine 1.014 (1.010-1.025); Urobilinogen,Urine Normal (Normal)
[2017-03-24 14:17] LABS: Bacteria,Urine None Seen per hpf (None-Few); Hyaline Casts,Urine None Seen per lpf (None-Few); Squamous Epithelial Cell,Urine Moderate per lpf (None-Few); WBC,Urine 15-30 per hpf (0-3)
[2017-03-24] MEDS: MetroNIDAZOLE 500 MG/100 ML 500 MG/100 ML BAG IVPB SCH (17:40)
[2017-03-24] MEDS: 0.9 % Sodium Chloride 1,000 ML IVC SCH (17:41)
--- NOTE | 2017-03-24 18:23 | Internal Med Progress Note ---
Date of Encounter: 03/24/17 Time of Encounter: 18:21 - Assessment and plan (1) GI bleed Current Visit: Yes Status: Acute Qualifiers: GI bleed type/associated pathology: unspecified gastrointestinal hemorrhage type Qualified Code(s): K92.2 - Gastrointestinal hemorrhage, unspecified (2) Anemia Current Visit: Yes Status: Acute Qualifiers: Anemia type: other cause Other causes of anemia: other cause, not classified Qualified Code(s): D64.89 - Other specified anemias (3) Renal failure, chronic Current Visit: Yes Status: Chronic Qualifiers: Chronic kidney disease stage: stage 4 (severe) Qualified Code(s): N18.4 - Chronic kidney disease, stage 4 (severe) (4) Atrial fibrillation Current Visit: Yes Status: Chronic Qualifiers: Atrial fibrillation type: chronic Qualified Code(s): I48.2 - Chronic atrial fibrillation (5) CHF (congestive heart failure) Current Visit: Yes Status: Chronic Qualifiers: Congestive heart failure type: unspecified congestive heart failure type Congestive heart failure chronicity: unspecified congestive heart failure chronicity Qualified Code(s): I50.9 - Heart failure, unspecified (6) DVT prophylaxis Current Visit: Yes Status: Acute (7) Colitis, acute Current Visit: Yes Status: Acute - Subjective Interval history: Carla Maynard is a 86-year-old female admitted for GI bleed. She presents from the ED with chief complaint of large amount of bleeding in her depends and that sheets. Patient states she has not felt well for the past several days and has vomited for the past 2 days with chills but no fever. Patient also reports abdominal pain and cramping over the same time period. Urinalysis is negative for blood, however rectal exam is positive for Hemoccult patient is a poor historian. Hemoglobin is essentially unchanged in drop overnight from 10-9 while she is on IV fluid. Examination is unremarkable. 03/[address] Angeles did EGD and colonoscopy. EGD was unremarkable however colonoscopy showed left-sided colitis and he suspect possible ischemic versus infectious colitis. Therefore I have increased IV fluids 200 mL an hour will continue IV antibiotics and follow her closely. She clinically she has improved quite significantly. Her creatinine has risen to 2.7 and will repeat the BMP and expect it to come down as we have increased IV fluid. - Constitutional Vitals: Temp Pulse Resp BP Pulse Ox 97.5 F L 55 14 130/61 97 03/24/17 15:17 03/24/17 15:17 03/24/17 15:17 03/24/17 15:17 03/24/17 15:17 General appearance: Present: A&O X 1, pleasant, obese. Absent: no acute distress - Head Head exam: Present: atraumatic, normocephalic - Eye Eye exam: Present: PERRL, conjuntiva pink, sclera anicteric Pupils: Present: PERRL - Neck Neck exam general surgery: Present: supple, trachea midline. Absent: lymphadenopathy - Respiratory Respiratory exam: Present: CTAB. Absent: accessory muscle use, rales, rhonchi, wheezes - Cardiovascular Cardiovascular exam: Present: RRR, +S1, +S2. Absent: diastolic murmur, gallop, rubs, systolic murmur - GI/Abdominal GI/Abdominal exam: Present: normal bowel sounds, soft, tenderness, no peritoneal signs. Absent: distended Additional comments: Mild periumbilical tenderness noted nontender with bowel sounds active nor organomegaly - Extremities Exam Extremities exam: Present: warm, radial pulses palpable and symetrical. Absent : calf tenderness, cyanotic, pedal edema - Neurological Exam Neurological exam: Present: CN II-XII intact, oriented X3, no focal deficits. Absent: pronater drift, facial droop, speech deficit - Skin Skin exam: Present: dry, intact Internal Medicine: Result - Labs CBC & Chem 7: 03/24/17 00:49 03/24/17 00:49 Labs: Short CBC 03/24/17 Range/Units 00:49 WBC 10.6 (4.3-11.1) K/mcL Hgb 9.2 L (11.5-15.4) g/dL Hct 28.3 L (35.3-44.9) % Plt Count 153 (140-400) K/mcL Neutrophils # 8.2 (1.6-8.9) K/mcL BMP 03/24/17 00:49 Sodium 137 Potassium 3.6 Chloride 95 L Carbon Dioxide 32 H BUN 48 H Creatinine 2.70 H Glucose 92 Calcium 7.9 L Liver Function 03/24/17 Range/Units 00:49 Total Bilirubin 0.5 (0.2-1.2) mg/dL AST 20 (5-34) Units/L ALT 7 (0-55) Units/L Alkaline Phosphatase 45 (38-126) Units/L Albumin 2.5 L (3.5-5.0) g/dL Urine 03/24/17 Range/Units 14:04 Urine Color Yellow (Yellow) Urine Clarity Cloudy A (Clear) Urine pH 6.5 (5.0-8.0) pH Units Ur Specific Jarrell 1.014 (1.010-1.025) Urine Protein 100 H (Neg-Trace) mg/dL Urine Glucose (UA) Normal (Normal) mg/dL - ABG Interpretation ABG results: PT/INR, D-dimer PT 13.5 Seconds (9.4-12.1) H 03/23/17 06:09 Consult Discharge Plan - Plan Instructions: Heart Failure (DC) Referrals: Oni Garg ANESTHESIOLOGY FELLOW [Advanced Practice Nurse] -
[2017-03-24] MEDS ORDERED: Levofloxacin 500 MG/100 ML 500 MG/100 ML BAG IVPB SCH (20:00)
[2017-03-25] MEDS: hydrALAZINE 25 MG TABLET PO SCH ×3 (00:19→12:56)
[2017-03-25] MEDS: MetroNIDAZOLE 500 MG/100 ML 500 MG/100 ML BAG IVPB SCH ×2 (00:19→09:02)
[2017-03-25] MEDS: 0.9 % Sodium Chloride 1,000 ML IVC SCH (04:11)
[2017-03-25 05:38] LABS: Basophils % 0.4 %; Eosinophils # 0.1 K/mcL (0.0-0.6); Eosinophils % 1.8 %; Hemoglobin 8.4 g/dL (11.5-15.4); Immature Granulocytes % 0.7 % (0-4); Lymphocytes % 14.2 %; Mean Corpuscular HGB Conc 33.6 g/dL (31.6-35.5); Mean Corpuscular Hemoglobin 35.3 pg (28.0-33.3); Mean Platelet Volume 10.8 fL (9.4-12.4); Monocytes # 0.7 K/mcL (0.0-1.3); Monocytes % 10.1 %; Neutrophils # 5.1 K/mcL (1.6-8.9); Platelet Count 151 K/mcL (140-400); Red Blood Count 2.38 M/mcL (3.82-4.97); Red Cell Distribution Width 13.5 % (11.5-14.5); Segmented Neutrophils % 72.8 %
[2017-03-25 05:55] LABS: Alanine Aminotransferase < 6 Units/L (0-55); Albumin 2.3 g/dL (3.5-5.0); Albumin/Globulin Ratio 0.7 (1.1-2.2); Alkaline Phosphatase 46 Units/L (38-126); Aspartate Amino Transferase 17 Units/L (5-34); BUN/Creatinine Ratio 17 (6-26); Bilirubin,Total 0.4 mg/dL (0.2-1.2); Blood Urea Nitrogen 44 mg/dL (7-20); Calcium 7.7 mg/dL (8.6-10.8); Carbon Dioxide 26 mEq/L (19-29); Chloride 100 mEq/L (98-109); Globulin 3.2 g/dL (2.4-3.5); Glucose 76 mg/dL (70-99); Osmolality,Calculated 294 (280-300); Potassium 3.7 mEq/L (3.5-4.5); Sodium 137 mEq/L (136-145); Total Protein 5.5 g/dL (6.0-8.3); eGFR For African Americans 21 (> 60); eGFR For Non-African Americans 17 (> 60)
[2017-03-25] MEDS: Pantoprazole 40 MG VIAL IVP SCH (09:02)
[2017-03-25] MEDS: Magnesium Oxide 400 MG TABLET PO SCH (09:02)
[2017-03-25] MEDS: Aspirin 81 MG TAB.CHEW PO SCH (09:02)
[2017-03-25] MEDS ORDERED: Iron Dextran Complex 200 MG in 0.9 % Sodium Chloride 500 ML IVPB ONE (09:27)
--- NOTE | 2017-03-25 09:29 | Physician Discharge Referral ---
ExtendedCare Referral Info Transfer To: ecf Provider in Charge: tammi Provider in Charge after Transfer: PCP Institutional Level of Care: Skilled - Diagnosis (1) GI bleed Status: Acute (2) Anemia Status: Acute (3) Renal failure, chronic Status: Chronic (4) Atrial fibrillation Status: Chronic (5) CHF (congestive heart failure) Status: Chronic (6) DVT prophylaxis Status: Acute (7) Colitis, acute Status: Acute - Transfer Medications Home Medications: Carvedilol [Carvedilol] 12.5 mg PO BID 02/20/17 [History] Cholecalciferol (Vitamin D3) [Vitamin D] 2,000 unit PO DAILY 02/20/17 [History] Furosemide [Lasix] 40 mg PO DAILY 02/20/17 [History] Lutein Extract/Zeaxanthin Ext [Lutein 15 mg Softgel] 15 mg PO BID 02/20/17 [ History] Magnesium Oxide [Magnesium Oxide] 250 mg PO DAILY 02/20/17 [History] Multivit-Min/FA/Lycopen/Lutein [Centrum Silver Tablet] 1 tab PO DAILY 02/20/17 [ History] Potassium [Potassium] 99 mg PO DAILY 02/20/17 [History] Pyridoxine HCl [Vitamin B-6] 50 mg PO DAILY 02/20/17 [History] Rutin/Quercetin/Bioflav/Bilber [Bilberry Extract 40 mg Cap] 40 mg PO DAILY 02/20 [History] hydrALAZINE [HydrALAZINE] 25 mg PO Q6HR 02/20/17 [History] Glucosamine/D3/Boswellia Jesenia [Osteo Bi-Flex Tablet] 1 tab PO DAILY 03/22/17 [ History] Allergies/Adverse Reactions: Allergies amlodipine Allergy (Verified 02/20/17 15:38) Anaphylaxis atenolol Allergy (Verified 02/20/17 15:38) Anaphylaxis codeine Allergy (Verified 02/20/17 15:38) Weakness Erythromycin Base Allergy (Verified 02/20/17 15:38) Anaphylaxis Oxycodone Allergy (Verified 02/20/17 15:38) Anaphylaxis Penicillins Allergy (Verified 02/20/17 15:27) Anaphylaxis Sulfanilamide Allergy (Verified 02/20/17 15:38) Blister Tetanus Vaccines and Toxoid Allergy (Verified 02/20/17 15:38) See Comments - Respiratory Orders Smoking Cessation: Smoking cessation has been advised. For more information, call the [place] Tobacco Quit Line at 8-688-ROCPNOW. CERTIFICATION: I certify that the transfer of the above named patient to an Extended Care Facility is necessary for the continuing treatment of the diagnosis listed. The above information is true and accurate reflection of patient's current condition. Confidential - Redisclosure prohibited without a patient's written consent.
--- NOTE | 2017-03-25 09:33 | Discharge Summary ---
Date of Encounter: 03/25/17 Time of Encounter: 09:30 - Discharge Diagnosis (1) GI bleed Priority: Primary Status: Acute Qualifiers: GI bleed type/associated pathology: unspecified gastrointestinal hemorrhage type Qualified Code(s): K92.2 - Gastrointestinal hemorrhage, unspecified (2) Anemia Priority: Secondary Status: Acute Qualifiers: Anemia type: other cause Other causes of anemia: other cause, not classified Qualified Code(s): D64.89 - Other specified anemias (3) Renal failure, chronic Priority: Secondary Status: Chronic Qualifiers: Chronic kidney disease stage: stage 4 (severe) Qualified Code(s): N18.4 - Chronic kidney disease, stage 4 (severe) (4) Atrial fibrillation Priority: Secondary Status: Chronic Qualifiers: Atrial fibrillation type: chronic Qualified Code(s): I48.2 - Chronic atrial fibrillation (5) CHF (congestive heart failure) Priority: Secondary Status: Chronic Qualifiers: Congestive heart failure type: unspecified congestive heart failure type Congestive heart failure chronicity: unspecified congestive heart failure chronicity Qualified Code(s): I50.9 - Heart failure, unspecified (6) DVT prophylaxis Priority: Secondary Status: Acute (7) Colitis, acute Priority: Primary Status: Acute - Discharge Medications Prescriptions: Ciprofloxacin HCl [Cipro] 500 mg PO BID #14 tablet metroNIDAZOLE [Flagyl] 500 mg PO TID #21 tablet Omeprazole [PriLOSEC] 20 mg PO DAILY #30 cap Home Medications: Carvedilol 12.5 mg PO BID 02/20/17 [History] Cholecalciferol (Vitamin D3) [Vitamin D3] 2,000 unit PO DAILY 02/20/17 [History] Furosemide [Lasix] 40 mg PO DAILY 02/20/17 [History] Lutein Extract/Zeaxanthin Ext [Lutein 15 mg Softgel] 15 mg PO BID 02/20/17 [ History] Magnesium Oxide 250 mg PO DAILY 02/20/17 [History] Multivit-Min/FA/Lycopen/Lutein [Centrum Silver Tablet] 1 tab PO DAILY 02/20/17 [ History] Potassium 99 mg PO DAILY 02/20/17 [History] Pyridoxine HCl [Vitamin B-6] 50 mg PO DAILY 02/20/17 [History] Rutin/Quercetin/Bioflav/Bilber [Bilberry Extract 40 mg Cap] 40 mg PO DAILY 02/20 [History] hydrALAZINE [HydrALAZINE] 25 mg PO Q6HR 02/20/17 [History] Glucosamine/D3/Boswellia Jesenia [Osteo Bi-Flex Tablet] 1 tab PO DAILY 03/22/17 [ History] Acetaminophen [Tylenol] 650 mg PO Q6HR PRN #0 tablet 03/25/17 [Rx] Ciprofloxacin HCl [Cipro] 500 mg PO BID #14 tablet 03/25/17 [Rx] Omeprazole [PriLOSEC] 20 mg PO DAILY #30 cap 03/25/17 [Rx] metroNIDAZOLE [Flagyl] 500 mg PO TID #21 tablet 03/25/17 [Rx] Allergies/Adverse Reactions: Allergies amlodipine Allergy (Verified 02/20/17 15:38) Anaphylaxis atenolol Allergy (Verified 02/20/17 15:38) Anaphylaxis codeine Allergy (Verified 02/20/17 15:38) Weakness Erythromycin Base Allergy (Verified 02/20/17 15:38) Anaphylaxis Oxycodone Allergy (Verified 02/20/17 15:38) Anaphylaxis Penicillins Allergy (Verified 02/20/17 15:27) Anaphylaxis Sulfanilamide Allergy (Verified 02/20/17 15:38) Blister Tetanus Vaccines and Toxoid Allergy (Verified 02/20/17 15:38) See Comments Procedures/tests Complete & Pending: Procedures Performed prior 72 hours Category Date Time Status EKG [ECG 12 lead ECG] [ECG] Stat Y 03/22/17 20:47 Completed Date of admission: 03/22/17 19:35 Primary care physician: PCP NO Consults: 03/22/17 19:57 Consult to Physical Therapy [CONS] Routine Comment: Evaluate, develop and implement POC Reason for Consult: Patient has difficulty ambulating, even with walker 03/22/17 20:14 Consult to Gastroenterology [CONS] Routine Consulting Provider: [facility] [place] Reason for Consult: Patient brought to ED with bright red blood that had soaked bedclothes and Depends. Hemoccult positive. Call Completed: Yes 03/22/17 22:43 Consult to Nutrition [CONS] Routine Comment: Consulting Provider: NUTRITION Reason for Dietary Consult: Diet Education Consult to [facility] [CONS] Routine Reason for SW Consult: [place] patient Discharging clinician: Fabian Donis Anticipated date of discharge: 03/25/17 - Patient Status Disposition: Transfer SNF Condition: Fair Overall status at discharge: patient is progressing back to baseline - Discharge Instructions Instructions: Heart Failure (DC) Follow Up With: Oni Garg CNP [Advanced Practice Nurse] - - Diet and Activity Activity: as per physical therapy Diet: advance to your usual diet Hospital course: Carla Maynard is a 86-year-old female admitted for GI bleed. She presents from the ED with chief complaint of large amount of bleeding in her depends and that sheets. Patient states she has not felt well for the past several days and has vomited for the past 2 days with chills but no fever. Patient also reports abdominal pain and cramping over the same time period. Urinalysis is negative for blood, however rectal exam is positive for Hemoccult patient is a poor historian due to underlying dementia. Hemoglobin dropped from 10.4-8.6 which is suspected mainly due to hemodilution and frequent blood draws over period of 3 days.e. patient seems comfortable. Dr. Angeles did EGD and colonoscopy. EGD was unremarkable however colonoscopy showed left-sided colitis and he suspect possible ischemic versus infectious colitis. Patient was treated with IV fluid and IV antibiotics. She seems is stable enough to be discharged. - Time Spent with Patient Total time spent providing and/or coordinating discharge services: Greater than 30 minutes - Constitutional Vitals: Temp Pulse Resp BP Pulse Ox 97.5 F L 65 18 126/70 99 03/25/17 07:23 03/25/17 07:23 03/25/17 07:23 03/25/17 07:23 03/25/17 07:23 General appearance: Present: A&O X 1, pleasant, obese. Absent: no acute distress - Head Head exam: Present: atraumatic, normocephalic - Eye Eye exam: Present: PERRL, conjuntiva pink, sclera anicteric Pupils: Present: PERRL - Neck Neck exam general surgery: Present: supple, trachea midline. Absent: lymphadenopathy - Respiratory Respiratory exam: Present: CTAB. Absent: accessory muscle use, rales, rhonchi, wheezes - Cardiovascular Cardiovascular exam: Present: RRR, +S1, +S2. Absent: diastolic murmur, gallop, rubs, systolic murmur - GI/Abdominal GI/Abdominal exam: Present: normal bowel sounds, soft, no peritoneal signs. Absent: distended, tenderness - Extremities Exam Extremities exam: Present: warm, radial pulses palpable and symetrical. Absent : calf tenderness, cyanotic, pedal edema - Neurological Exam Neurological exam: Present: no focal deficits. Absent: pronater drift, facial droop, speech deficit Additional comments: Pleasantly confused answer the questions and cooperates no focal signs moving all extremities plantars downward bilaterally - Skin Skin exam: Present: dry, intact
[2017-03-25 11:16] LABS: Hematocrit 27.1 % (35.3-44.9); Hemoglobin 8.8 g/dL (11.5-15.4)
[2017-03-25 11:48] VITALS: BP 135/84
[2017-03-25] MEDS: Ondansetron 4 MG/2 ML VIAL IVP PRN (13:00)
[2017-03-25 15:18] LABS: Hematocrit 27.3 % (35.3-44.9); Hemoglobin 9.3 g/dL (11.5-15.4)
[2017-03-26] MEDS ORDERED: Levofloxacin 250 MG/50 ML 250 MG/50 ML BAG IVPB SCH (20:00)
== END 2017-03-25 17:00 | DRG 378 ==
LOC: 3ANU 11:55 → EMEROO 11:55 → 3ANU 19:24
PROVIDERS: ADMIT Internal Medicine; ATTEND Internal Medicine
PROC: ENDOCBX (2017-03-24 07:30)

== ENCOUNTER 2017-06-07 23:05 | Inpatient (IN) ==
[2017-06-07] MEDS ORDERED: 0.9 % Sodium Chloride 1,000 ML IVC ONE (23:23)
[2017-06-07 23:41] LABS: Basophils % 0.1 %; Hematocrit 25.4 % (35.3-44.9); Hemoglobin 8.3 g/dL (11.5-15.4); Immature Granulocytes % 0.7 % (0-4); Lymphocytes # 0.5 K/mcL (0.6-4.6); Lymphocytes % 6.2 %; Mean Corpuscular HGB Conc 32.7 g/dL (31.6-35.5); Mean Corpuscular Hemoglobin 34.3 pg (28.0-33.3); Mean Platelet Volume 9.9 fL (9.4-12.4); Monocytes # 0.6 K/mcL (0.0-1.3); Monocytes % 8.2 %; Neutrophils # 6.3 K/mcL (1.6-8.9); Platelet Count 192 K/mcL (140-400); Red Blood Count 2.42 M/mcL (3.82-4.97); Red Cell Distribution Width 13.8 % (11.5-14.5); Segmented Neutrophils % 84.8 %
[2017-06-07 23:47] LABS: INR 1.2; Prothrombin Time 12.9 Seconds (9.4-12.1)
[2017-06-07] MEDS ORDERED: Acetaminophen 325 MG TABLET PO ONE (23:48)
[2017-06-07 23:50] LABS: Activated Partial Thrombo Time 27.4 Seconds (26.0-36.0)
[2017-06-07 23:57] LABS: Albumin 2.5 g/dL (3.5-5.0); Albumin/Globulin Ratio 0.5 (1.1-2.2); Bilirubin,Direct 0.3 mg/dL (0.0-0.5); Bilirubin,Indirect 0.2 mg/dL (0.0-1.2); Bilirubin,Total 0.5 mg/dL (0.2-1.2); Calcium 8.4 mg/dL (8.6-10.8); Globulin 4.6 g/dL (2.4-3.5); Magnesium 1.8 mg/dL (1.6-2.6); Phosphorous 3.9 mg/dL (2.3-4.7); Potassium 3.8 mEq/L (3.5-4.5); Total Protein 7.1 g/dL (6.0-8.3)
--- NOTE | 2017-06-07 23:58 | Emergency Department Note ---
Disposition Clinical Impression: Elevated troponin, Bronchopneumonia, ETHAN (acute kidney injury) UTI (urinary tract infection) Qualifiers: Urinary tract infection type: acute cystitis Hematuria presence: without hematuria Qualified Code(s): N30.00 - Acute cystitis without hematuria Disposition: Admitted As Inpatient Time of Disposition: 01:27 General Adult HPI - General Chief complaint: ED Shortness of Breath/Dyspnea Stated complaint: ARELI Time Seen by Provider: 06/07/17 23:09 Source: patient, EMS Mode of arrival: EMS Limitations: other Nursing Notes Reviewed: Yes Vital Signs Reviewed: Yes - History of Present Illness HPI Narrative: 87-year-old female presenting to the ED from her [facility] where they state she had a fever and was having a hard time breathing. Patient has history of dementia and Alzheimer's. She is a very poor historian. So much of the history was from nursing reports as well as paperwork. When talking to her she states she does not hurt but she is having a little hard time breathing. She does have a history of heart failure, atrial fibrillation, high blood pressure, falls GI bleed, chronic kidney disease as well as hypothyroidism. She did have breast cancer as well. Pain Scale: 0 - Related Data Home Medications Medication Instructions Recorded Confirmed Carvedilol 12.5 mg PO BID 02/20/17 03/22/17 Cholecalciferol (Vitamin D3) 2,000 unit PO DAILY 02/20/17 03/22/17 [Vitamin D3] Furosemide [Lasix] 40 mg PO DAILY 02/20/17 03/22/17 Lutein Extract/Zeaxanthin Ext 15 mg PO BID 02/20/17 03/22/17 [Lutein 15 mg Softgel] Magnesium Oxide 250 mg PO DAILY 02/20/17 03/22/17 Multivit-Min/FA/Lycopen/Lutein 1 tab PO DAILY 02/20/17 03/22/17 [Centrum Silver Tablet] Potassium 99 mg PO DAILY 02/20/17 03/22/17 Pyridoxine HCl [Vitamin B-6] 50 mg PO DAILY 02/20/17 03/22/17 Rutin/Quercetin/Bioflav/Bilber 40 mg PO DAILY 02/20/17 03/22/17 [Bilberry Extract 40 mg Cap] hydrALAZINE [HydrALAZINE] 25 mg PO Q6HR 02/20/17 03/22/17 Glucosamine/D3/Boswellia Jesenia 1 tab PO DAILY 03/22/17 03/22/17 [Osteo Bi-Flex Tablet] Previous Rx's Medication Instructions Recorded Acetaminophen [Tylenol] 650 mg PO Q6HR PRN #0 tablet 03/25/17 Ciprofloxacin HCl [Cipro] 500 mg PO BID #14 tablet 03/25/17 Omeprazole [PriLOSEC] 20 mg PO DAILY #30 cap 03/25/17 metroNIDAZOLE [Flagyl] 500 mg PO TID #21 tablet 03/25/17 Allergies Allergy/AdvReac Type Severity Reaction Status Date / Time amlodipine Allergy Anaphylaxis Verified 06/07/17 23:08 atenolol Allergy Anaphylaxis Verified 06/07/17 23:08 benazepril Allergy See Verified 06/07/17 23:08 Comments codeine Allergy Weakness Verified 06/07/17 23:08 Erythromycin Base Allergy Anaphylaxis Verified 06/07/17 23:08 Oxycodone Allergy Anaphylaxis Verified 06/07/17 23:08 Penicillins Allergy Anaphylaxis Verified 06/07/17 23:08 Sulfanilamide Allergy Blister Verified 06/07/17 23:08 Tetanus Vaccines and Toxoid Allergy See Verified 06/07/17 23:08 Comments Constitutional: Denies: fever, chills, weakness, weight change Eyes: Denies: eye pain, eye discharge, vision change ENT ED: Denies: ear pain, throat pain, dental pain, hearing loss, epistaxis, congestion, dysphagia Cardiovascular: Reports: as per HPI Respiratory: Reports: dyspnea. Denies: cough, wheezes, hemoptysis, stridor Gastrointestinal: Denies: abdominal pain, nausea, vomiting, diarrhea, constipation, hematemesis, melena, hematochezia Genitourinary: Denies: dysuria, frequency, hematuria, discharge Musculoskeletal: Denies: back pain, neck pain, arthralgia, myalgia Integumentary: Denies: rash, abrasion, lesions Neurological: Denies: headache, weakness, numbness, paresthesias, confusion, abnormal gait, vertigo Psychiatric: Denies: anxiety, depression, suicidal thoughts, homicidal thoughts , auditory hallucinations, visual hallucinations Endocrine: Denies: fatigue Allergic/Immunologic: Denies: facial swelling, urticaria Past Medical History - Past Medical History Medical history: Reports: atrial fibrillation, CHF, dementia, diabetes, hyperlipidemia, hypertension, osteoporosis Surgical history: Reports: breast surgery, cataract, cholecystectomy Psychiatric history: Reports: other - Social History Smoking Status: Never smoker Smokeless Tobacco Status: No Alcohol use: Reports: none Drug use: Reports: none Physical Exam - General Limitations: other General appearance: alert, in no apparent distress - Head Head exam: atraumatic, normocephalic, normal inspection - Eye Eye exam: Present: normal appearance, PERRL, EOMI - ENT ENT exam: normal exam, normal oropharynx, mucous membranes moist - Neck Neck exam: Present: normal inspection, full ROM, trachea midline - Chest Chest inspection: Present: normal inspection, symmetric chest wall rise - Respiratory Respiratory exam: Present: normal lung sounds bilaterally. Absent: respiratory distress, wheezes - Cardiovascular Cardiovascular exam: Present: regular rate, normal rhythm, normal heart sounds - Abdominal Exam Abdominal exam: Present: soft, Non-Tender. Absent: tenderness, distention, guarding, rebound, rigidity - Back Exam Back exam: Present: normal inspection, full ROM. Absent: tenderness, CVA tenderness (R), CVA tenderness (L) - Neurological Exam Neurological exam: Present: alert, oriented X3 - Skin Skin exam: Present: warm, dry, intact, normal color Course Course Narrative: A 7-year-old female who has history of dementia and is a poor historian presented to the ED from her [facility] with a fever and they said difficulty in breathing. Upon arrival she was a poor historian and unable to answer any questions. So we did a dental I sepsis workup including looking for pneumonia and urinary tract infection. We did basic labs including CBC, BMP, lipase, lactate. Less than EKG and chest x-ray. A urinalysis via straight catheter. We started 1 L of fluids and gave her 6 mg Tylenol for fever reduction. Patient most likely has some infection and will most likely need to be admitted for treatment. She did not meet sepsis criteria as she only had a fever and was not tachycardic or hypoxic at the time of arrival. His plan. She is a DNR/ DNI. - Reevaluation(s) Reevaluation #1: Reevaluation is doing well at this time. All of her labs came back and shows that she did have a possible UTI as well as pneumonia based on chest x-ray. We decided to start 1 g of Rocephin. She also elevated troponin 0.06. This never occurred before so we started her on one aspirin and in going to admit her for elevated troponin as well as urosepsis and pneumonia. She also has chronic kidney disease and has an elevated creatinine. This is a little more elevated than her past visits. We will also give her a liter of fluid as well. I will contact the hospital at this time. For admission. Gave this plan and [facility] was notified. - Consultations Consultation #1: Dr. Geiger who agreed to admit the patient. In the entire history and physical and he understands this. Told him our assessment and plan and he agrees with this. He says he will accept the patient this time. Patient agrees this plan. Vital Signs Temperature 100.8 F H 06/07/17 23:25 Pulse Rate 81 06/07/17 23:25 Respiratory Rate 16 06/07/17 23:25 Blood Pressure 113/67 06/07/17 23:25 O2 Sat by Pulse Oximetry 98 06/07/17 23:25 Temperature 97.6 F 06/08/17 02:18 Pulse Rate 60 06/08/17 02:18 Respiratory Rate 15 06/08/17 04:23 Blood Pressure 136/78 06/08/17 02:18 O2 Sat by Pulse Oximetry 91 06/08/17 04:23 Oxygen Delivery Oxygen Delivery Nasal Cannula Medical Decision Making - [facility] Narrative Medical decision making narrative: 7-year-old female presented to the ED complaining of difficulty of breath she is a poor historian and has history of dementia. After talking to her she had a fever of 100.1 but was not tachycardic and not hypoxic or tachypneic. We decided to do a generalized sepsis workup including chest x-ray, lactate, CBC, CMP, urinalysis with straight catheter. We ended up finding possible UTI as well as pneumonia on chest x-ray. We treated her with 1 g Rocephin. She also had an elevated troponin of 0.11. She never had a history of this. She does have atrial fibrillation but there were no EKG changes based on previous EKG. She did have chronic kidney disease with an elevated creatinine of 3 when her passive and around 2.5. At this time we will admit the patient for further evaluation of the troponin and for treatment of her UTI and pneumonia. Patient also needs further workup on her kidney injury. Patient is okay with this plan. Patient was admitted to the hospitalist service. - Medical Records Medical records reviewed: Yes I reviewed the patient's medical records. - Lab Data Lab results reviewed: Yes I reviewed the patient's lab results. Result diagrams: 06/08/17 04:27 06/08/17 04:27 Lab Results 06/07/17 06/07/17 06/07/17 Range/Units 23:32 23:32 23:32 WBC 7.5 (4.3-11.1) K/mcL RBC 2.42 L (3.82-4.97) M/mcL Hgb 8.3 L (11.5-15.4) g/dL Hct 25.4 L (35.3-44.9) % MCV 105.0 H (83.0-100.0) fL MCH 34.3 H (28.0-33.3) pg MCHC 32.7 (31.6-35.5) g/dL RDW 13.8 (11.5-14.5) % Plt Count 192 (140-400) K/mcL MPV 9.9 (9.4-12.4) fL Immature Gran % 0.7 (0-4) % Seg Neutrophils % 84.8 % Lymphocytes % 6.2 % Monocytes % 8.2 % Eosinophils % 0.0 % Basophils % 0.1 % Neutrophils # 6.3 (1.6-8.9) K/mcL Lymphocytes # 0.5 L (0.6-4.6) K/mcL Monocytes # 0.6 (0.0-1.3) K/mcL Eosinophils # 0.0 (0.0-0.6) K/mcL Basophils # 0.0 (0.0-0.2) K/mcL PT 12.9 H (9.4-12.1) Seconds INR 1.2 APTT 27.4 (26.0-36.0) Seconds Sodium 138 (136-145) mEq/L Potassium 3.8 (3.5-4.5) mEq/L Chloride 101 (98-109) mEq/L Carbon Dioxide 26 (19-29) mEq/L BUN 69 H (7-20) mg/dL Creatinine 3.09 H (0.57-1.11) mg/dL Est GFR ( Amer) 17 L (> 60) Est GFR (Non-Af Amer) 14 L (> 60) BUN/Creatinine Ratio 22 (6-26) Glucose 145 H (70-99) mg/dL Calculated Osmolality 309 H (280-300) Lactic Acid (0.5-2.2) mmol/L Calcium 8.4 L (8.6-10.8) mg/dL Phosphorus 3.9 (2.3-4.7) mg/dL Magnesium 1.8 (1.6-2.6) mg/dL Total Bilirubin 0.5 (0.2-1.2) mg/dL Direct Bilirubin 0.3 (0.0-0.5) mg/dL Indirect Bilirubin 0.2 (0.0-1.2) mg/dL AST 27 (5-34) Units/L ALT 16 (0-55) Units/L Alkaline Phosphatase 69 (38-126) Units/L Troponin I (0-0.03) ng/mL Serum Total Protein 7.1 (6.0-8.3) g/dL Albumin 2.5 L (3.5-5.0) g/dL Globulin 4.6 H (2.4-3.5) g/dL Albumin/Globulin Ratio 0.5 L (1.1-2.2) Lipase 17 (8-78) Units/L Urine Color (Yellow) Urine Clarity (Clear) Urine pH (5.0-8.0) pH Units Ur Specific [place] (1.010-1.025) Urine Protein (Neg-Trace) mg/dL Urine Glucose (UA) (Normal) mg/dL Urine Ketones (Negative) mg/dL Urine Blood (Negative) Urine Nitrite (Negative) Urine Bilirubin (Negative) Urine Urobilinogen (Normal) mg/dL Ur Leukocyte Esterase (Negative) Urine Microscopic RBC (0-3) per hpf Urine Microscopic WBC (0-3) per hpf Ur Squamous Epith Cells (None-Few) per lpf Urine Bacteria (None-Few) per hpf Ur Culture Indicated? (NO) 06/07/17 06/07/17 06/08/17 Range/Units 23:32 23:32 00:05 WBC (4.3-11.1) K/mcL RBC (3.82-4.97) M/mcL Hgb (11.5-15.4) g/dL Hct (35.3-44.9) % MCV (83.0-100.0) fL MCH (28.0-33.3) pg MCHC (31.6-35.5) g/dL RDW (11.5-14.5) % Plt Count (140-400) K/mcL MPV (9.4-12.4) fL Immature Gran % (0-4) % Seg Neutrophils % % Lymphocytes % % Monocytes % % Eosinophils % % Basophils % % Neutrophils # (1.6-8.9) K/mcL Lymphocytes # (0.6-4.6) K/mcL Monocytes # (0.0-1.3) K/mcL Eosinophils # (0.0-0.6) K/mcL Basophils # (0.0-0.2) K/mcL PT (9.4-12.1) Seconds INR APTT (26.0-36.0) Seconds Sodium (136-145) mEq/L Potassium (3.5-4.5) mEq/L Chloride (98-109) mEq/L Carbon Dioxide (19-29) mEq/L BUN (7-20) mg/dL Creatinine (0.57-1.11) mg/dL Est GFR ( Amer) (> 60) Est GFR (Non-Af Amer) (> 60) BUN/Creatinine Ratio (6-26) Glucose (70-99) mg/dL Calculated Osmolality (280-300) Lactic Acid 0.8 (0.5-2.2) mmol/L Calcium (8.6-10.8) mg/dL Phosphorus (2.3-4.7) mg/dL Magnesium (1.6-2.6) mg/dL Total Bilirubin (0.2-1.2) mg/dL Direct Bilirubin (0.0-0.5) mg/dL Indirect Bilirubin (0.0-1.2) mg/dL AST (5-34) Units/L ALT (0-55) Units/L Alkaline Phosphatase (38-126) Units/L Troponin I 0.06 H* (0-0.03) ng/mL Serum Total Protein (6.0-8.3) g/dL Albumin (3.5-5.0) g/dL Globulin (2.4-3.5) g/dL Albumin/Globulin Ratio (1.1-2.2) Lipase (8-78) Units/L Urine Color Dark Yellow (Yellow) Urine Clarity Turbid A (Clear) Urine pH 8.0 (5.0-8.0) pH Units Ur Specific [place] 1.014 (1.010-1.025) Urine Protein >=300 H (Neg-Trace) mg/dL Urine Glucose (UA) Normal (Normal) mg/dL Urine Ketones Negative (Negative) mg/dL Urine Blood Small H (Negative) Urine Nitrite Negative (Negative) Urine Bilirubin Negative (Negative) Urine Urobilinogen Normal (Normal) mg/dL Ur Leukocyte Esterase Small H (Negative) Urine Microscopic RBC 0-3 (0-3) per hpf Urine Microscopic WBC 5-15 H (0-3) per hpf Ur Squamous Epith Cells Few (None-Few) per lpf Urine Bacteria Many H (None-Few) per hpf Ur Culture Indicated? YES A (NO) - Radiology Data Radiology results reviewed: Yes I reviewed the patient's radiology results. - EKG Data EKG #1 EKG attestation: Yes I reviewed and interpreted this EKG. EKG results narrative: EKG done at 2311 review myself and the attending shows an atrial fibrillation rhythm at a rate of 79 bpm, QRS 125, QTC 426 with a left axis deviation. There is signs of a right bundle matheus block. No acute ST changes, T-wave changes. No signs of a heart strain hypertrophy. This compared with an old EKG done 03/22 was also shows atrial fibrillation with a right bundle branch block that is unchanged from today's. Our impression is an unchanged EKG from previous shows atrial fibrillation with left axis deviation and right bundle branch block. EKG shows normal: ST-T waves Rate: normal Rhythm: A.Fib [place]/QRS: left axis deviation When compared to previous EKG there are: no significant changes Interpretation: no acute changes, unchanged when compared to prior tracing (date ) Attestation Statement - Attestation Attestation: I examined this patient and my medical decision-making was reviewed with the Resident Physician. I agree with the documented findings, disposition and treatment plan as described except to the extent set forth below. Patient to the ED for shortness of breath and fever. Patient with no complaints of my evaluation, however she has Alzheimer's dementia. She was found to be febrile here. She was in no respiratory distress. Plan. The patient is septic workup. She has a left upper lobe infiltrate. She started on broad-spectrum antibiotics and admitted to medicine.
[2017-06-08] MEDS ORDERED: Aspirin 81 MG TAB.CHEW PO ONE (00:31)
[2017-06-08 00:57] LABS: Bilirubin,Urine Negative (Negative); Blood,Urine Small (Negative); Clarity,Urine Turbid (Clear); Color,Urine Dark Yellow (Yellow); Glucose,Urine (UA) Normal (Normal); Ketones,Urine Negative (Negative); Leukocyte Esterase,Urine Small (Negative); Nitrite,Urine Negative (Negative); Protein,Urine >=300 mg/dL (Neg-Trace); Specific Gravity,Urine 1.014 (1.010-1.025); Urobilinogen,Urine Normal (Normal)
[2017-06-08 01:12] LABS: Bacteria,Urine Many per hpf (None-Few); RBC,Urine 0-3 per hpf (0-3); Squamous Epithelial Cell,Urine Few per lpf (None-Few)
[2017-06-08] MEDS ORDERED: Naloxone 0.4 MG/ML INJ IVP PRN (01:52)
[2017-06-08] MEDS ORDERED: Ipratropium/Albuterol Neb 3 ML IH PRN (02:01)
--- NOTE | 2017-06-08 02:07 | Internal Med History&Physical ---
Date of Encounter: 06/08/17 Time of Encounter: 02:04 Assessment and Plan (1) PNA (pneumonia) Current visit: Yes Status: Acute suspect aspiration due to location. Keep NPO. Speech eval. Tolerated rocephin in the ED, will continue cefepime, pharmacy to dose vanco - doubt need it but given SNF resident, will continue HCAP therapy for now. Blood cx pend Qualifiers: Qualified Code(s): J18.9 - Pneumonia, unspecified organism (2) Pyuria Current visit: Yes Status: Acute urine cx pend, antibiotics above (3) Atrial fibrillation Current visit: No Status: Chronic appears to be rate control permanent aFib. Due to NPO, substitute coreg with iv metoprolol scheduled Qualifiers: Atrial fibrillation type: chronic Qualified Code(s): I48.2 - Chronic atrial fibrillation (4) CHF (congestive heart failure) Current visit: No Status: Chronic hold lasix, monitor to avoid overload Qualifiers: Congestive heart failure type: unspecified congestive heart failure type Congestive heart failure chronicity: unspecified congestive heart failure chronicity Qualified Code(s): I50.9 - Heart failure, unspecified (5) CKD (chronic kidney disease) stage 4, GFR 15-29 ml/min Current visit: No Status: Acute hold lasix, gentle IVF, monitor to avoid overload (6) Dementia Current visit: No Status: Acute baseline Qualifiers: Dementia type: Alzheimer's disease Qualified Code(s): G30.1 - Alzheimer's disease with late onset; F02.80 - Dementia in other diseases classified elsewhere without behavioral disturbance (7) Elevated troponin Current visit: Yes Status: Acute trend. likely 2/2 acute illness. doubt acs Internal Medicine - H&P: HPI Chief complaint: Fever , SOB History of present illness: Ms. Maynard is a 87 year old female with baseline severe dementia, CHF, AFib, Fall , CKD who presents with fever and SOB. She has dementia at baseline with limited accurate hx. She resides in [facility] and was reported to be have a fever of 101.1. On arrival , she has reported some SOB in her sedentary state. She is pleasant but has baseline dementia. Objectively, CXR with new DAKOTAH infiltrate - which was suspicious for aspiration PNA ?, pyuria, EKG personally reviewed with rate 79, appear unchanged from prior, mild troponemia and acute on CKD. XR/XR chest 1V portable IMPRESSION: 1. Interval development of large airspace opacity in the left upper lobe most concerning for bronchopneumonia. 2. Small/moderate left pleural effusion with associated atelectatic changes. 3. Redemonstration diffuse interstitial prominence and stable 8 mm nodular opacity in right upper lobe. 4. Stable cardiomegaly. Past Med Surg Social Fam HX - Past Medical History Medical history: atrial fibrillation, CHF, dementia, diabetes, hyperlipidemia, hypertension, osteoporosis Psychiatric history: other - Past Surgical History Surgical History: breast surgery, cataract, cholecystectomy - Social History Smoking Status: Never smoker Smokeless Tobacco Status: No Alcohol use: none Drug use: none - Family History Father Family Member Ethnicity: Non- Living Status: Hx Family Cardiac Disorders: Yes (HD) Mother Family Member Ethnicity: Non- Living Status: Hx Family Endocrine Disorder: Yes (DM) Sister Adopted: No Family Member Ethnicity: Non- Twin of Family Member: Yes, Identical Living Status: Hx Family Cardiac Disorders: Yes Hx Family Respiratory Disorders: Yes Hx Family Cancer: No Hx Family GI Disorders: No Hx Family Endocrine Disorder: Yes Hx Family Neuromuscular Disorders: No Hx Family Neurologic Disorders: No Hx Family HEENT Disorders: No Hx Family Autoimmune Disorders: No Internal Medicine - H&P: Meds Carvedilol 12.5 mg PO BID 02/20/17 [History] Cholecalciferol (Vitamin D3) [Vitamin D3] 2,000 unit PO DAILY 02/20/17 [History] Furosemide [Lasix] 40 mg PO DAILY 02/20/17 [History] Lutein Extract/Zeaxanthin Ext [Lutein 15 mg Softgel] 15 mg PO BID 02/20/17 [ History] Magnesium Oxide 250 mg PO DAILY 02/20/17 [History] Multivit-Min/FA/Lycopen/Lutein [Centrum Silver Tablet] 1 tab PO DAILY 02/20/17 [ History] Potassium 99 mg PO DAILY 02/20/17 [History] Pyridoxine HCl [Vitamin B-6] 50 mg PO DAILY 02/20/17 [History] Rutin/Quercetin/Bioflav/Bilber [Bilberry Extract 40 mg Cap] 40 mg PO DAILY 02/20 [History] hydrALAZINE [HydrALAZINE] 25 mg PO Q6HR 02/20/17 [History] Glucosamine/D3/Boswellia Jesenia [Osteo Bi-Flex Tablet] 1 tab PO DAILY 03/22/17 [ History] Acetaminophen [Tylenol] 650 mg PO Q6HR PRN #0 tablet 03/25/17 [Rx] Ciprofloxacin HCl [Cipro] 500 mg PO BID #14 tablet 03/25/17 [Rx] Omeprazole [PriLOSEC] 20 mg PO DAILY #30 cap 03/25/17 [Rx] metroNIDAZOLE [Flagyl] 500 mg PO TID #21 tablet 03/25/17 [Rx] 3 Allergy/AdvReac Type Severity Reaction Status Date / Time amlodipine Allergy Anaphylaxis Verified 06/07/17 23:08 atenolol Allergy Anaphylaxis Verified 06/07/17 23:08 benazepril Allergy See Verified 06/07/17 23:08 Comments codeine Allergy Weakness Verified 06/07/17 23:08 Erythromycin Base Allergy Anaphylaxis Verified 06/07/17 23:08 Oxycodone Allergy Anaphylaxis Verified 06/07/17 23:08 Penicillins Allergy Anaphylaxis Verified 06/07/17 23:08 Sulfanilamide Allergy Blister Verified 06/07/17 23:08 Tetanus Vaccines and Toxoid Allergy See Verified 06/07/17 23:08 Comments All Systems PM: A 10-system review of systems was performed and is negative for pertinent findings except as documented above in the HPI. Review of systems: ROS 14 point review of systems reviewed as best as possible given presentation. Pertinent positive or negative as per HPI or otherwise reviewed as negative - Constitutional Vitals: Temp Pulse Resp BP Pulse Ox 97 F L 73 20 112/56 98 06/08/17 01:14 06/08/17 01:14 06/08/17 02:00 06/08/17 02:00 06/08/17 01:14 Exam: General - Alert but not oriented to time, place, appears comfortable Psych - Appropriate affect/speech. No agitation Eyes - ALBERTO. Eye lids intact. No scleral icterus Neuro - No gross peripheral or central neuro deficits with intact CN 2-12 exam Heart - Irregular irregular. S1 and S2 present. No added HS/murmurs appreciated. No elevated JVD appreciated. Lung -decrease air entry b/l, No wheezes appreciated. DAKOTAH crackle GI - Soft, non-tender. No hepatosplenomegaly/ascites. BS+ - No CVA/suprapubic tenderness or palpable bladder distension Skin - Intact. No rash/petechiae/ecchymosis. Warm extremities Internal Med - H&P Results - Labs CBC & Chem 7: 06/07/17 23:32 06/07/17 23:32
[2017-06-08] MEDS ORDERED: Vancomycin 1,000 MG in D5% in Water 250 ML IVPB ONE (03:00)
[2017-06-08] MEDS ORDERED: Vancomycin 0 MG in D5% in Water 250 ML IVPB SCH (03:00)
[2017-06-08] MEDS: Ringers Solution, Lactated 1,000 ML IVC SCH ×2 (03:30→15:37)
[2017-06-08] MEDS: Ipratropium/Albuterol Neb 3 ML IH SCH ×4 (04:22→21:15)
[2017-06-08 04:37] LABS: Basophils % 0.2 %; Hematocrit 23.3 % (35.3-44.9); Hemoglobin 7.6 g/dL (11.5-15.4); Immature Granulocytes % 0.6 % (0-4); Lymphocytes # 0.6 K/mcL (0.6-4.6); Lymphocytes % 9.6 %; Mean Corpuscular HGB Conc 32.6 g/dL (31.6-35.5); Mean Corpuscular Hemoglobin 34.7 pg (28.0-33.3); Mean Corpuscular Volume 106.4 fL (83.0-100.0); Mean Platelet Volume 9.6 fL (9.4-12.4); Monocytes # 0.6 K/mcL (0.0-1.3); Monocytes % 9.1 %; Neutrophils # 5.3 K/mcL (1.6-8.9); Platelet Count 164 K/mcL (140-400); Red Blood Count 2.19 M/mcL (3.82-4.97); Red Cell Distribution Width 13.8 % (11.5-14.5); Segmented Neutrophils % 80.5 %
[2017-06-08 04:51] LABS: Magnesium 1.6 mg/dL (1.6-2.6); Potassium 3.4 mEq/L (3.5-4.5)
[2017-06-08] MEDS ORDERED: Cefepime HCl 1,000 MG in D5% in Water (Mini-Bag+) 100 ML IVPB SCH (06:00)
[2017-06-08] MEDS: *HR* Metoprolol 5 MG/5 ML VIAL IVP SCH ×2 (06:07→12:07)
[2017-06-08] MEDS ORDERED: Pantoprazole 40 MG VIAL IVP SCH (06:30)
--- NOTE | 2017-06-08 14:23 | Internal Med Progress Note ---
<Bhupinder Robbins - Last Filed: 06/08/17 14:20> Date of Encounter: 06/08/17 Time of Encounter: 09:00 - Assessment and plan (1) PNA (pneumonia) Current Visit: Yes Status: Acute Assessment and plan: Chest x-ray were sperm and showed a large air space opacity left upper lobe most concerning for pneumonia - Nonproductive cough, shortness of breath on admission - Likely secondary to aspiration, bedside swallow eval. Fortescue thick liquids approved - Patient reports improvement. - Continue vancomycin and cefepime - Blood cultures pending - Modified barium swallow evaluation on Saturday Qualifiers: Pneumonia type: due to unspecified organism Laterality: left Lung location: upper lobe of lung Qualified Code(s): J18.1 - Lobar pneumonia, unspecified organism (2) Anemia Current Visit: No Status: Acute Assessment and plan: H/H of 7.6/23.3, mildly decreased from admission of 8.3/23.3 - MCV of 106. Possible nutritional deficiencies. Will order folate and B12 tomorrow if necessary - Received 1 L of saline in the emergency department - Possible delusional effect, we will closely monitor for any signs of bleed, repeat CBC in morning Qualifiers: Anemia type: other cause Other causes of anemia: other cause, not classified Qualified Code(s): D64.89 - Other specified anemias (3) Atrial fibrillation Current Visit: No Status: Chronic Assessment and plan: - Heart rate has been in 50s and 60s - We will continue to closely monitor for bradycardia, hold metoprolol if necessary - Not on anticoagulation, high risk for falls Qualifiers: Atrial fibrillation type: chronic Qualified Code(s): I48.2 - Chronic atrial fibrillation (4) Elevated troponin Current Visit: Yes Status: Acute Assessment and plan: - Likely secondary to acute renal failure - Adynamic at this time (5) Dementia Current Visit: No Status: Acute Assessment and plan: - Unsure of baseline, no family at bedside - We will continue to monitor, and tibial medications Qualifiers: Dementia type: Alzheimer's disease Qualified Code(s): G30.1 - Alzheimer's disease with late onset; F02.80 - Dementia in other diseases classified elsewhere without behavioral disturbance (6) UTI (urinary tract infection) Current Visit: Yes Status: Acute Assessment and plan: - Receiving vancomycin and cefepime for aspiration pneumonia - No urinary complaints this time - No leukocytosis, no lactic acidosis, vital signs stable - Urine culture pending Qualifiers: Urinary tract infection type: acute cystitis Hematuria presence: without hematuria Qualified Code(s): N30.00 - Acute cystitis without hematuria (7) Pyuria Current Visit: Yes Status: Acute Assessment and plan: - As above (8) CKD (chronic kidney disease) Current Visit: Yes Status: Acute Assessment and plan: - Most recent BUN/creatinine of 68/2.96 - Mildly elevated from baseline, likely secondary to dehydration. Baseline creatinine of high 2s - Continue monitor and gentle IV fluids as tolerated with careful monitoring of overload Qualifiers: Chronic kidney disease stage: stage 4 (severe) Qualified Code(s): N18.4 - Chronic kidney disease, stage 4 (severe) (9) DVT prophylaxis Current Visit: No Status: Acute Assessment and plan: - SCDs - Time Spent With Patient 25 - 35 minutes - Subjective Interval history: This note is not for billing purposes. Patient was seen and examined at bedside. She states that she is feeling "slow" this morning. She is unable to further describe her feelings. She denies any symptoms of fevers, chills, chest pain, shortness of breath since started on supplemental oxygen. She does admit to a nonproductive cough. - Constitutional Vitals: Temp Pulse Resp BP Pulse Ox 97.7 F 59 15 140/64 98 06/08/17 12:02 06/08/17 12:02 06/08/17 12:02 06/08/17 12:02 06/08/17 12:02 Exam: No acute distress Decreased breath sounds bilaterally Regular rate and rhythm No lower showing swelling Internal Medicine: Result - Labs CBC & Chem 7: 06/08/17 04:27 06/08/17 04:27 Labs: Short CBC 06/08/17 Range/Units 04:27 WBC 6.6 (4.3-11.1) K/mcL Hgb 7.6 L (11.5-15.4) g/dL Hct 23.3 L (35.3-44.9) % Plt Count 164 (140-400) K/mcL Neutrophils # 5.3 (1.6-8.9) K/mcL BMP 06/08/17 04:27 Sodium 136 Potassium 3.4 L Chloride 101 Carbon Dioxide 27 BUN 68 H Creatinine 2.96 H Glucose 165 H Calcium 8.0 L Cardiac Enzymes 06/08/17 06/08/17 Range/Units 04:27 08:26 Troponin I 0.06 H* 0.05 H* (0-0.03) ng/mL - ABG Interpretation ABG results: PT/INR, D-dimer PT 12.9 Seconds (9.4-12.1) H 06/07/17 23:32 Consult Discharge Plan - Plan Referrals: NONE,PCP [Primary Care Provider] - <Chaitanya Simon - Last Filed: 06/08/17 18:13> Date of Encounter: 06/08/17 - Constitutional Vitals: Temp Pulse Resp BP Pulse Ox 98.1 F 66 16 148/81 98 06/08/17 16:14 06/08/17 16:14 06/08/17 16:14 06/08/17 16:14 06/08/17 16:14 Internal Medicine: Result - Labs CBC & Chem 7: 06/08/17 04:27 06/08/17 04:27 Labs: Short CBC 06/08/17 Range/Units 04:27 WBC 6.6 (4.3-11.1) K/mcL Hgb 7.6 L (11.5-15.4) g/dL Hct 23.3 L (35.3-44.9) % Plt Count 164 (140-400) K/mcL Neutrophils # 5.3 (1.6-8.9) K/mcL BMP 06/08/17 04:27 Sodium 136 Potassium 3.4 L Chloride 101 Carbon Dioxide 27 BUN 68 H Creatinine 2.96 H Glucose 165 H Calcium 8.0 L Cardiac Enzymes 06/08/17 06/08/17 06/08/17 Range/Units 04:27 08:26 14:07 Troponin I 0.06 H* 0.05 H* 0.05 H* (0-0.03) ng/mL - ABG Interpretation ABG results: PT/INR, D-dimer PT 12.9 Seconds (9.4-12.1) H 06/07/17 23:32 - Attending Attestation I examined this patient and my medical decision-making was reviewed with the Resident Physician on 06/08/17. I agree with the documented findings, disposition and treatment plan as described except to the extent set forth below. Ms. Maynard was admitted earlier today with pneumonia presumed to be aspiration. She has passed bedside swallow eval. Exam Alert and comfortable Not tachy Agree with plan as detailed above.
[2017-06-08] MEDS ORDERED: Ondansetron ODT 4 MG TAB.RAPDIS PO PRN (15:35)
[2017-06-08] MEDS: hydrALAZINE 25 MG TABLET PO SCH (17:09)
[2017-06-09] MEDS: hydrALAZINE 25 MG TABLET PO SCH ×4 (02:22→17:19)
[2017-06-09] MEDS: Ipratropium/Albuterol Neb 3 ML IH SCH ×4 (04:02→22:50)
[2017-06-09] MEDS: Cefepime HCl 1,000 MG in D5% in Water (Mini-Bag+) 100 ML IVPB SCH (06:26)
[2017-06-09 06:37] LABS: Basophils % 0.1 %; Eosinophils # 0.1 K/mcL (0.0-0.6); Eosinophils % 1.2 %; Hematocrit 28.9 % (35.3-44.9); Immature Granulocytes % 0.7 % (0-4); Lymphocytes # 0.7 K/mcL (0.6-4.6); Lymphocytes % 8.2 %; Mean Corpuscular HGB Conc 32.2 g/dL (31.6-35.5); Mean Corpuscular Hemoglobin 34.1 pg (28.0-33.3); Mean Corpuscular Volume 105.9 fL (83.0-100.0); Mean Platelet Volume 9.9 fL (9.4-12.4); Monocytes # 0.5 K/mcL (0.0-1.3); Monocytes % 6.4 %; Neutrophils # 6.8 K/mcL (1.6-8.9); Platelet Count 216 K/mcL (140-400); Red Blood Count 2.73 M/mcL (3.82-4.97); Red Cell Distribution Width 13.9 % (11.5-14.5); Segmented Neutrophils % 83.4 %
[2017-06-09 06:45] LABS: Hemoglobin 9.3 g/dL (11.5-15.4)
[2017-06-09 06:52] LABS: Calcium 8.6 mg/dL (8.6-10.8); Magnesium 1.7 mg/dL (1.6-2.6); Potassium 3.7 mEq/L (3.5-4.5)
[2017-06-09] MEDS ORDERED: Vancomycin 1,000 MG in D5% in Water 250 ML IVPB ONE (08:00)
--- NOTE | 2017-06-09 09:23 | Internal Med Progress Note ---
<Bhupinder Robbins - Last Filed: 06/09/17 10:31> Date of Encounter: 06/09/17 Time of Encounter: 09:19 - Assessment and plan (1) PNA (pneumonia) Current Visit: Yes Status: Acute Assessment and plan: Chest x-ray were sperm and showed a large air space opacity left upper lobe most concerning for pneumonia - Nonproductive cough, shortness of breath on admission, continuing symptoms however states they are improving - Likely secondary to aspiration, bedside swallow eval. Max thick liquids approved - Continue vancomycin and cefepime - Blood cultures pending - Modified barium swallow evaluation on Saturday Qualifiers: Pneumonia type: aspiration pneumonia Aspiration pneumonia type: unspecified Laterality: left Lung location: upper lobe of lung Qualified Code(s): J69.0 - Pneumonitis due to inhalation of food and vomit (2) Anemia Current Visit: No Status: Acute Assessment and plan: H/H improve this morning at 9.3/28.9, increased from hemoglobin of 7.6 yesterday - MCV of 106. Possible nutritional deficiencies. Continue home vitamins mentation if necessary - Received 1 L of saline in the emergency department -We will continue to monitor for any signs of bleed and an serial complete blood counts Qualifiers: Anemia type: other cause Other causes of anemia: other cause, not classified Qualified Code(s): D64.89 - Other specified anemias (3) Atrial fibrillation Current Visit: No Status: Chronic Assessment and plan: - Heart rate has improved and is now in the 70s and 80s - We will continue to closely monitor for bradycardia, hold metoprolol if necessary - Not on anticoagulation, high risk for falls Qualifiers: Atrial fibrillation type: chronic Qualified Code(s): I48.2 - Chronic atrial fibrillation (4) Elevated troponin Current Visit: Yes Status: Acute Assessment and plan: - Likely secondary to acute renal failure - Adynamic at this time. (5) Dementia Current Visit: No Status: Acute Assessment and plan: - Unsure of baseline, no family at bedside - We will continue to monitor, continue home medications Qualifiers: Dementia type: Alzheimer's disease Alzheimer's disease onset: unspecified onset Dementia behavioral disturbance: without behavioral disturbance Qualified Code(s): G30.9 - Alzheimer's disease, unspecified; F02.80 - Dementia in other diseases classified elsewhere without behavioral disturbance (6) UTI (urinary tract infection) Current Visit: Yes Status: Acute Assessment and plan: - Receiving vancomycin and cefepime for aspiration pneumonia - No urinary complaints this time - No leukocytosis, no lactic acidosis, vital signs stable - Urine culture grew Proteus. We will continue current coverage with cefepime and vancomycin until sensitivities are available Qualifiers: Urinary tract infection type: acute cystitis Hematuria presence: without hematuria Qualified Code(s): N30.00 - Acute cystitis without hematuria (7) Pyuria Current Visit: Yes Status: Acute Assessment and plan: - As above (8) CKD (chronic kidney disease) Current Visit: Yes Status: Acute Assessment and plan: - Most recent BUN/creatinine of 67/2.67, improved from yesterday - Mildly elevated from baseline, likely secondary to dehydration. Baseline creatinine of high 2s - Continue to monitor, stopped fluid hydration yesterday as she is able to tolerate a diet. Improved Qualifiers: Chronic kidney disease stage: stage 4 (severe) Qualified Code(s): N18.4 - Chronic kidney disease, stage 4 (severe) (9) DVT prophylaxis Current Visit: No Status: Acute Assessment and plan: - SCDs - Time Spent With Patient 25 - 35 minutes - Subjective Interval history: Patient was seen and examined at bedside this morning. She states she is feeling better than yesterday. She still does complain of some shortness of breath and nonproductive cough, however she states that it is much improved since admission. She continues to deny any symptoms of fevers, chills, dysuria. She is having no abdominal pain. She is alert and oriented 2 and believes she is at [place], however she is able to state her full name and name the president. Of note, she was dozing when interviewer entered the room with her breakfast still on the bedside table. - Constitutional Vitals: Temp Pulse Resp BP Pulse Ox 98.5 F 85 20 158/68 98 06/09/17 08:11 06/09/17 08:11 06/09/17 08:11 06/09/17 08:11 06/09/17 08:11 Exam: Gen.: Vitals noted. No acute distress. AAOx2. Appears much more awake this morning, however still confused HEENT: PERRL/EOMI, oropharynx clear, Normocephalic, atraumatic Neck: Supple. No adenopathy. Cardiac: RRR, no murmur, +S1/S2 Pulmonary: Crackles in left upper lobe, otherwise CTA bilaterally, no wheezes, rales or rhonchi, equal chest expansion Abdomen: soft, nontender, BS noted, no guarding Back: Nontender throughout. MSK: ROM intact, no joint swelling noted Extremities: no BLE edema, nontender calf, no cyanosis or clubbing Neuro: A&Ox2, moves all extremities, no focal deficits, Mildly delayed responses Psych: Appropriate mood and behavior. Internal Medicine: Result - Labs CBC & Chem 7: 06/09/17 06:24 06/09/17 06:24 Labs: Short CBC 06/09/17 Range/Units 06:24 WBC 8.2 (4.3-11.1) K/mcL Hgb 9.3 L D (11.5-15.4) g/dL Hct 28.9 L (35.3-44.9) % Plt Count 216 (140-400) K/mcL Neutrophils # 6.8 (1.6-8.9) K/mcL BMP 06/09/17 06:24 Sodium 138 Potassium 3.7 Chloride 101 Carbon Dioxide 27 BUN 67 H Creatinine 2.67 H Glucose 94 Calcium 8.6 Cardiac Enzymes 06/08/17 Range/Units 14:07 Troponin I 0.05 H* (0-0.03) ng/mL - ABG Interpretation ABG results: PT/INR, D-dimer PT 12.9 Seconds (9.4-12.1) H 06/07/17 23:32 Consult Discharge Plan - Plan Referrals: NONE,PCP [Primary Care Provider] - <Chaitanya Simno - Last Filed: 06/09/17 17:15> Date of Encounter: 06/09/17 - Assessment and plan (1) Acute respiratory failure with hypoxia Current Visit: Yes Status: Acute Assessment and plan: Due to pneumonia and aspiration. Continue oxygen, abx and supportive care. (2) PNA (pneumonia) Current Visit: Yes Status: Acute Qualifiers: Pneumonia type: aspiration pneumonia Aspiration pneumonia type: unspecified Laterality: left Lung location: upper lobe of lung Qualified Code(s): J69.0 - Pneumonitis due to inhalation of food and vomit (3) UTI (urinary tract infection) Current Visit: Yes Status: Acute Qualifiers: Urinary tract infection type: acute cystitis Hematuria presence: with hematuria Qualified Code(s): N30.01 - Acute cystitis with hematuria (4) Proteus (mirabilis) (morganii) as the cause of diseases classified elsewhere Current Visit: Yes Status: Acute (5) Anemia Current Visit: No Status: Acute Qualifiers: Anemia type: other cause Other causes of anemia: nutritional, other Qualified Code(s): D53.8 - Other specified nutritional anemias (6) Atrial fibrillation Current Visit: No Status: Chronic Qualifiers: Atrial fibrillation type: chronic Qualified Code(s): I48.2 - Chronic atrial fibrillation (7) Renal failure, chronic Current Visit: No Status: Chronic Qualifiers: Chronic kidney disease stage: stage 4 (severe) Qualified Code(s): N18.4 - Chronic kidney disease, stage 4 (severe) - Constitutional Vitals: Temp Pulse Resp BP Pulse Ox 98.6 F 78 18 166/70 97 06/09/17 15:28 06/09/17 15:28 06/09/17 15:44 06/09/17 15:28 06/09/17 15:44 Internal Medicine: Result - Labs CBC & Chem 7: 06/09/17 06:24 06/09/17 06:24 Labs: Short CBC 06/09/17 Range/Units 06:24 WBC 8.2 (4.3-11.1) K/mcL Hgb 9.3 L D (11.5-15.4) g/dL Hct 28.9 L (35.3-44.9) % Plt Count 216 (140-400) K/mcL Neutrophils # 6.8 (1.6-8.9) K/mcL BMP 06/09/17 06:24 Sodium 138 Potassium 3.7 Chloride 101 Carbon Dioxide 27 BUN 67 H Creatinine 2.67 H Glucose 94 Calcium 8.6 - ABG Interpretation ABG results: PT/INR, D-dimer PT 12.9 Seconds (9.4-12.1) H 06/07/17 23:32 - Attending Attestation I examined this patient and my medical decision-making was reviewed with the Resident Physician on 06/09/17. I agree with the documented findings, disposition and treatment plan as described except to the extent set forth below. Ms. Maynard is currently admitted for acute pneumonia due to aspiration. She remains moderate to high risk due to potential for worsening resp status. Ms Maynard is more alert today. She is still quite confused. Not eating much. No fever or chills. Denies CP or SOB. No GI issues. Exam Alert. Comfortable. Confused Mucus membranes dry Heart irreg and not tachy Lungs with some rhonchi Abd soft No edema I/P 1. PNA 2. Anemia Further diagnoses and plan as above.
[2017-06-09] MEDS: Magnesium Oxide 400 MG TABLET PO SCH (09:36)
[2017-06-09] MEDS: Furosemide 40 MG TABLET PO SCH (09:37)
[2017-06-09] MEDS: (Potassium [Potassium] 99 MG) PO SCH (09:37)
[2017-06-10] MEDS: hydrALAZINE 25 MG TABLET PO SCH ×5 (00:12→23:46)
[2017-06-10 04:12] LABS: Basophils % 0.4 %; Eosinophils # 0.2 K/mcL (0.0-0.6); Eosinophils % 3.2 %; Hematocrit 28.3 % (35.3-44.9); Hemoglobin 8.8 g/dL (11.5-15.4); Immature Granulocytes % 0.7 % (0-4); Lymphocytes # 0.9 K/mcL (0.6-4.6); Lymphocytes % 14.9 %; Mean Corpuscular HGB Conc 31.1 g/dL (31.6-35.5); Mean Corpuscular Volume 109.3 fL (83.0-100.0); Mean Platelet Volume 9.6 fL (9.4-12.4); Monocytes # 0.5 K/mcL (0.0-1.3); Monocytes % 9.5 %; Neutrophils # 4.1 K/mcL (1.6-8.9); Platelet Count 208 K/mcL (140-400); Red Blood Count 2.59 M/mcL (3.82-4.97); Red Cell Distribution Width 13.8 % (11.5-14.5); Segmented Neutrophils % 71.3 %
[2017-06-10 04:25] LABS: Calcium 8.4 mg/dL (8.6-10.8); Magnesium 1.7 mg/dL (1.6-2.6); Potassium 3.5 mEq/L (3.5-4.5)
[2017-06-10] MEDS: Ipratropium/Albuterol Neb 3 ML IH SCH ×4 (04:37→21:27)
[2017-06-10] MEDS: Cefepime HCl 1,000 MG in D5% in Water (Mini-Bag+) 100 ML IVPB SCH (05:39)
[2017-06-10] MEDS ORDERED: Vancomycin 1,000 MG in D5% in Water 250 ML IVPB ONE (08:00)
[2017-06-10] MEDS: Furosemide 40 MG TABLET PO SCH (08:33)
[2017-06-10] MEDS: Magnesium Oxide 400 MG TABLET PO SCH (08:33)
[2017-06-10] MEDS: (Potassium [Potassium] 99 MG) PO SCH (08:33)
--- NOTE | 2017-06-10 13:53 | Internal Med Progress Note ---
<Bhupinder Robbins - Last Filed: 06/10/17 13:50> Date of Encounter: 06/10/17 Time of Encounter: 10:30 - Assessment and plan (1) PNA (pneumonia) Current Visit: Yes Status: Acute Assessment and plan: Chest x-ray were sperm and showed a large air space opacity left upper lobe most concerning for pneumonia - Nonproductive cough, shortness of breath on admission, continuing symptoms however states they are improving - Likely secondary to aspiration,barium swallow eval this AM, passed nectal thick foods. - Continue vancomycin and cefepime. Will likely send home on keflex and flagyl. - Blood cultures negative. Qualifiers: Pneumonia type: aspiration pneumonia Aspiration pneumonia type: unspecified Laterality: left Lung location: upper lobe of lung Qualified Code(s): J69.0 - Pneumonitis due to inhalation of food and vomit (2) Anemia Current Visit: No Status: Acute Assessment and plan: H/H improve this morning at 8.8/28.3, stable. - MCV of 106. Possible nutritional deficiencies. Continue home vitamins mentation if necessary -We will continue to monitor for any signs of bleed and an serial complete blood counts Qualifiers: Anemia type: other cause Other causes of anemia: nutritional, other Qualified Code(s): D53.8 - Other specified nutritional anemias (3) Atrial fibrillation Current Visit: No Status: Chronic Assessment and plan: - Heart rate has improved and is now in the 70s and 80s - We will continue to closely monitor for bradycardia, hold metoprolol if necessary - Not on anticoagulation, high risk for falls Qualifiers: Atrial fibrillation type: chronic Qualified Code(s): I48.2 - Chronic atrial fibrillation (4) Dementia Current Visit: No Status: Acute Qualifiers: Dementia type: Alzheimer's disease Alzheimer's disease onset: unspecified onset Dementia behavioral disturbance: without behavioral disturbance Qualified Code(s): G30.9 - Alzheimer's disease, unspecified; F02.80 - Dementia in other diseases classified elsewhere without behavioral disturbance (5) UTI (urinary tract infection) Current Visit: Yes Status: Acute Assessment and plan: - Receiving vancomycin and cefepime for aspiration pneumonia - No urinary complaints this time - No leukocytosis, no lactic acidosis, vital signs stable - Urine culture grew Proteus sensative to cefepime. Continue current meds. Qualifiers: Urinary tract infection type: acute cystitis Hematuria presence: without hematuria Qualified Code(s): N30.00 - Acute cystitis without hematuria (6) CKD (chronic kidney disease) Current Visit: Yes Status: Acute Qualifiers: Chronic kidney disease stage: stage 4 (severe) Qualified Code(s): N18.4 - Chronic kidney disease, stage 4 (severe) (7) DVT prophylaxis Current Visit: No Status: Acute Assessment and plan: - SCDs - Time Spent With Patient 25 - 35 minutes - Subjective Interval history: Patient was seen and examined at bedside this morning. She states she is feeling better than yesterday. She still does complain of some shortness of breath and nonproductive cough, however she states that it is much improved since admission. She continues to deny any symptoms of fevers, chills, dysuria. She is having no abdominal pain. She is more alert this morning. - Constitutional Vitals: Temp Pulse Resp BP Pulse Ox 97.6 F 60 16 148/72 98 06/10/17 12:00 06/10/17 12:00 06/10/17 12:00 06/10/17 12:00 06/10/17 12:00 Exam: Gen.: Vitals noted. No acute distress. AAOx2 HEENT: PERRL/EOMI, oropharynx clear, Normocephalic, atraumatic Neck: Supple. No adenopathy. Cardiac: irregularly irregular rhythm, no murmur, +S1/S2 Pulmonary: Mild rales in DAKOTAH, RLL. otherwise CTA b/l with no wheezes, rales or rhonchi, equal chest expansion Abdomen: soft, nontender, BS noted, no guarding Back: Nontender throughout. MSK: ROM intact, no joint swelling noted Extremities: no BLE edema, nontender calf, no cyanosis or clubbing Neuro: A&Ox2, moves all extremities, no focal deficits Psych: Appropriate mood and behavior Internal Medicine: Result - Labs CBC & Chem 7: 06/10/17 04:04 06/10/17 04:04 Labs: Short CBC 06/10/17 Range/Units 04:04 WBC 5.7 (4.3-11.1) K/mcL Hgb 8.8 L (11.5-15.4) g/dL Hct 28.3 L (35.3-44.9) % Plt Count 208 (140-400) K/mcL Neutrophils # 4.1 (1.6-8.9) K/mcL BMP 06/10/17 04:04 Sodium 137 Potassium 3.5 Chloride 101 Carbon Dioxide 25 BUN 64 H Creatinine 2.53 H Glucose 99 Calcium 8.4 L - ABG Interpretation ABG results: PT/INR, D-dimer PT 12.9 Seconds (9.4-12.1) H 06/07/17 23:32 - Impressions Impressions Videofluoroscopic Swallow 06/10/17 11:13 IMPRESSION: The episodes of transient flash penetration of nectar thick liquid. No evidence of aspiration. Please see separate speech pathology report for full discussion of findings and recommendations. D/ / Wendi Hernandez MD / Wendi Hernandez MD Interpreting Provider: Wendi Hernandez MD Consult Discharge Plan - Plan Referrals: NONE,PCP [Primary Care Provider] - <Chaitanya Simon - Last Filed: 06/10/17 15:21> Date of Encounter: 06/10/17 - Assessment and plan (1) Acute respiratory failure with hypoxia Current Visit: Yes Status: Acute (2) PNA (pneumonia) Current Visit: Yes Status: Acute Qualifiers: Pneumonia type: aspiration pneumonia Aspiration pneumonia type: unspecified Laterality: left Lung location: upper lobe of lung Qualified Code(s): J69.0 - Pneumonitis due to inhalation of food and vomit (3) UTI (urinary tract infection) Current Visit: Yes Status: Acute Qualifiers: Urinary tract infection type: acute cystitis Hematuria presence: with hematuria Qualified Code(s): N30.01 - Acute cystitis with hematuria (4) Proteus (mirabilis) (morganii) as the cause of diseases classified elsewhere Current Visit: Yes Status: Acute (5) Anemia Current Visit: No Status: Acute Qualifiers: Anemia type: other cause Other causes of anemia: nutritional, other Qualified Code(s): D53.8 - Other specified nutritional anemias (6) Atrial fibrillation Current Visit: No Status: Chronic Qualifiers: Atrial fibrillation type: chronic Qualified Code(s): I48.2 - Chronic atrial fibrillation (7) Renal failure, chronic Current Visit: No Status: Chronic Qualifiers: Chronic kidney disease stage: stage 4 (severe) Qualified Code(s): N18.4 - Chronic kidney disease, stage 4 (severe) - Constitutional Vitals: Temp Pulse Resp BP Pulse Ox 97.6 F 60 16 148/72 98 06/10/17 12:00 06/10/17 12:00 06/10/17 12:00 06/10/17 12:00 06/10/17 12:00 Internal Medicine: Result - Labs CBC & Chem 7: 06/10/17 04:04 06/10/17 04:04 Labs: Short CBC 06/10/17 Range/Units 04:04 WBC 5.7 (4.3-11.1) K/mcL Hgb 8.8 L (11.5-15.4) g/dL Hct 28.3 L (35.3-44.9) % Plt Count 208 (140-400) K/mcL Neutrophils # 4.1 (1.6-8.9) K/mcL BMP 06/10/17 04:04 Sodium 137 Potassium 3.5 Chloride 101 Carbon Dioxide 25 BUN 64 H Creatinine 2.53 H Glucose 99 Calcium 8.4 L - ABG Interpretation ABG results: PT/INR, D-dimer PT 12.9 Seconds (9.4-12.1) H 06/07/17 23:32 - Impressions Impressions Videofluoroscopic Swallow 06/10/17 11:13 IMPRESSION: The episodes of transient flash penetration of nectar thick liquid. No evidence of aspiration. Please see separate speech pathology report for full discussion of findings and recommendations. D/ / Wendi Hernandez MD / Wendi Hernandez MD Interpreting Provider: Wendi Hernandez MD - Attending Attestation I examined this patient and my medical decision-making was reviewed with the Resident Physician on 06/10/17. I agree with the documented findings, disposition and treatment plan as described except to the extent set forth below. Ms Maynard is currently admitted for acute asp pneumonia. She remains moderate to high risk due to potential for worsening resp status. Ms. Maynard is more alert today. No fever or chills. Denies complaints. No CP or SOB. On IV abx for pneumonia. Had MBS for swallowing today. Exam Alert. Comfortable Mucus membranes dry Heart irreg Rhonchi heard Abd soft I/P 1. Pneumonia 2. Dysphagia Further diagnoses and plan as above. Echo to lalito PATRICIA.
--- NOTE | 2017-06-10 15:57 | Electrocardiograph Report ---
[place] [id number] Test Date: 2017-06-07 Pat Name: Carla Maynard Department: 102 Room: 2A Gender: F Reservations Agent: : [id number] Requested By: Joao Rothman Order Number: [id number] Reading MD: Vicente Zepeda MD Measurements Intervals [place] Rate: 79 P: MD: 0 QRS: -57 QRSD: 125 T: -7 QT: 391 QTc: 426 Interpretive Statements ATRIAL FIBRILLATION MARKED LEFT AXIS DEVIATION RIGHT BUNDLE BRANCH BLOCK Poor R wave progression Electronically Signed On 06-10-2017 15:55:11 EDT by Vicente Zepeda MD
[2017-06-11] MEDS: Ipratropium/Albuterol Neb 3 ML IH SCH ×4 (03:48→21:45)
[2017-06-11 04:40] LABS: Hemoglobin 8.4 g/dL (11.5-15.4); Mean Corpuscular HGB Conc 32.3 g/dL (31.6-35.5); Mean Corpuscular Hemoglobin 33.9 pg (28.0-33.3); Mean Corpuscular Volume 104.8 fL (83.0-100.0); Mean Platelet Volume 9.5 fL (9.4-12.4); Platelet Count 232 K/mcL (140-400); Red Blood Count 2.48 M/mcL (3.82-4.97); Red Cell Distribution Width 13.3 % (11.5-14.5)
[2017-06-11 04:49] LABS: Calcium 8.4 mg/dL (8.6-10.8); Potassium 3.2 mEq/L (3.5-4.5)
[2017-06-11] MEDS: Cefepime HCl 1,000 MG in D5% in Water (Mini-Bag+) 100 ML IVPB SCH (05:45)
[2017-06-11] MEDS: hydrALAZINE 25 MG TABLET PO SCH ×4 (05:45→23:01)
[2017-06-11] MEDS: Magnesium Oxide 400 MG TABLET PO SCH (09:24)
[2017-06-11] MEDS: Furosemide 40 MG TABLET PO SCH (09:24)
[2017-06-11] MEDS ORDERED: Aminoglycoside Consult 1 EACH MC ONE (12:11)
--- NOTE | 2017-06-11 13:11 | Internal Med Progress Note ---
<LuisBhupinder tanner - Last Filed: 06/11/17 18:06> Date of Encounter: 06/11/17 Time of Encounter: 14:00 - Assessment and plan (1) PNA (pneumonia) Current Visit: Yes Status: Acute Assessment and plan: Chest x-ray were sperm and showed a large air space opacity left upper lobe most concerning for pneumonia - Nonproductive cough, shortness of breath on admission, continuing symptoms however states they are improving - Likely secondary to aspiration,barium swallow eval passed nectal thick foods. - Discontinued vancomycin and changed to Flagyl, continue cefepime. Will likely send home on keflex and flagyl. - Blood cultures negative. Qualifiers: Pneumonia type: aspiration pneumonia Aspiration pneumonia type: unspecified Laterality: left Lung location: upper lobe of lung Qualified Code(s): J69.0 - Pneumonitis due to inhalation of food and vomit (2) Anemia Current Visit: No Status: Acute Assessment and plan: H/H improve this morning at 8.4/26.0, stable. - MCV of 106. Possible nutritional deficiencies. Continue home vitamins mentation if necessary -We will continue to monitor for any signs of bleed and an serial complete blood counts Qualifiers: Anemia type: other cause Other causes of anemia: nutritional, other Qualified Code(s): D53.8 - Other specified nutritional anemias (3) Atrial fibrillation Current Visit: No Status: Chronic Assessment and plan: - Heart rate has improved and is now in the 70s and 80s - We will continue to closely monitor for bradycardia, hold metoprolol if necessary - Not on anticoagulation, high risk for falls Qualifiers: Atrial fibrillation type: chronic Qualified Code(s): I48.2 - Chronic atrial fibrillation (4) Dementia Current Visit: No Status: Acute Assessment and plan: - Unsure of baseline, no family at bedside - We will continue to monitor, continue home medications Qualifiers: Dementia type: Alzheimer's disease Alzheimer's disease onset: unspecified onset Dementia behavioral disturbance: without behavioral disturbance Qualified Code(s): G30.9 - Alzheimer's disease, unspecified; F02.80 - Dementia in other diseases classified elsewhere without behavioral disturbance (5) UTI (urinary tract infection) Current Visit: Yes Status: Acute Assessment and plan: - Receiving vancomycin and cefepime for aspiration pneumonia - No urinary complaints this time - No leukocytosis, no lactic acidosis, vital signs stable - Urine culture grew Proteus sensative to cefepime. Continue current meds. Qualifiers: Urinary tract infection type: acute cystitis Hematuria presence: without hematuria Qualified Code(s): N30.00 - Acute cystitis without hematuria (6) CKD (chronic kidney disease) Current Visit: Yes Status: Acute Assessment and plan: - Most recent BUN/creatinine of 62/2.19, improved from yesterday. At baseline - Mildly elevated from baseline, likely secondary to dehydration. Baseline creatinine of high 2s - Continue to monitor, stopped fluid hydration yesterday as she is able to tolerate a diet. Improved Qualifiers: Chronic kidney disease stage: stage 4 (severe) Qualified Code(s): N18.4 - Chronic kidney disease, stage 4 (severe) (7) DVT prophylaxis Current Visit: No Status: Acute Assessment and plan: - SCDs - Time Spent With Patient 25 - 35 minutes - Subjective Interval history: Patient was seen and examined at bedside this morning. She states she is feeling better than yesterday. She still does complain of some shortness of breath and nonproductive cough, however she states that it is much improved since admission. She continues to deny any symptoms of fevers, chills, dysuria. She is having no abdominal pain. She continues to be more alert each day. She mentions multiple times that she needs to go to therapy but is unsure if she wants to go. She continues to believe that she is in [place]. - Constitutional Vitals: Temp Pulse Resp BP Pulse Ox 96.8 F L 68 16 144/57 98 06/11/17 10:44 06/11/17 10:44 06/11/17 10:44 06/11/17 10:44 06/11/17 10:44 General appearance: Present: cooperative, A&O X 1, pleasant, no acute distress - ENT ENT exam: Present: mucous membranes moist - Neck Neck exam general surgery: Present: supple - Respiratory Respiratory exam: Present: CTAB, rales (DAKOTAH). Absent: accessory muscle use, chest wall tenderness - Cardiovascular Cardiovascular exam: Present: irregular rhythm (AFib), +S1, +S2. Absent: bradycardia, tachycardia - GI/Abdominal GI/Abdominal exam: Present: normal bowel sounds, soft, no peritoneal signs. Absent: splenomegaly, tenderness - Extremities Exam Additional comments: Mild b/l UE swelling without erythema or warmth. No swelling in LE b/l - Skin Skin exam: Present: intact, normal color, warm Internal Medicine: Result - Labs CBC & Chem 7: 06/11/17 04:09 06/11/17 04:09 Labs: Short CBC 06/11/17 Range/Units 04:09 WBC 5.3 (4.3-11.1) K/mcL Hgb 8.4 L (11.5-15.4) g/dL Hct 26.0 L (35.3-44.9) % Plt Count 232 (140-400) K/mcL [facility] 06/11/17 04:09 Sodium 137 Potassium 3.2 L Chloride 100 Carbon Dioxide 25 BUN 62 H Creatinine 2.19 H Glucose 87 Calcium 8.4 L - ABG Interpretation ABG results: PT/INR, D-dimer PT 12.9 Seconds (9.4-12.1) H 06/07/17 23:32 Consult Discharge Plan - Plan Referrals: NONE,PCP [Primary Care Provider] - <Bryce Thao P - Last Filed: 06/11/17 18:14> Date of Encounter: 06/11/17 - Constitutional Vitals: Temp Pulse Resp BP Pulse Ox 98.2 F 64 14 144/71 97 06/11/17 15:54 06/11/17 15:54 06/11/17 15:57 06/11/17 15:54 06/11/17 15:57 Internal Medicine: Result - Labs CBC & Chem 7: 06/11/17 04:09 06/11/17 04:09 Labs: Short CBC 06/11/17 Range/Units 04:09 WBC 5.3 (4.3-11.1) K/mcL Hgb 8.4 L (11.5-15.4) g/dL Hct 26.0 L (35.3-44.9) % Plt Count 232 (140-400) K/mcL [facility] 06/11/17 04:09 Sodium 137 Potassium 3.2 L Chloride 100 Carbon Dioxide 25 BUN 62 H Creatinine 2.19 H Glucose 87 Calcium 8.4 L - ABG Interpretation ABG results: PT/INR, D-dimer PT 12.9 Seconds (9.4-12.1) H 06/07/17 23:32 - Attending Attestation I examined this patient and my medical decision-making was reviewed with the Resident Physician. I agree with the documented findings, disposition and treatment plan as described except to the extent set forth below.
[2017-06-11] MEDS: metroNIDAZOLE 500 MG TABLET PO SCH ×2 (14:55→23:02)
[2017-06-12] MEDS: Ipratropium/Albuterol Neb 3 ML IH SCH ×2 (04:34→10:58)
[2017-06-12 05:11] LABS: Hematocrit 27.9 % (35.3-44.9); Hemoglobin 9.3 g/dL (11.5-15.4); Mean Corpuscular HGB Conc 33.3 g/dL (31.6-35.5); Mean Corpuscular Hemoglobin 33.9 pg (28.0-33.3); Mean Corpuscular Volume 101.8 fL (83.0-100.0); Mean Platelet Volume 10.5 fL (9.4-12.4); Platelet Count 236 K/mcL (140-400); Red Blood Count 2.74 M/mcL (3.82-4.97); Red Cell Distribution Width 13.2 % (11.5-14.5)
[2017-06-12 05:15] LABS: Calcium 8.8 mg/dL (8.6-10.8); Potassium 3.8 mEq/L (3.5-4.5)
[2017-06-12] MEDS: Cefepime HCl 1,000 MG in D5% in Water (Mini-Bag+) 100 ML IVPB SCH (05:45)
[2017-06-12] MEDS: hydrALAZINE 25 MG TABLET PO SCH (05:45)
[2017-06-12] MEDS: Magnesium Oxide 400 MG TABLET PO SCH (08:13)
[2017-06-12] MEDS: Furosemide 40 MG TABLET PO SCH (08:13)
[2017-06-12] MEDS: metroNIDAZOLE 500 MG TABLET PO SCH (08:13)
--- NOTE | 2017-06-12 09:00 | Discharge Summary ---
<LuisBhupinder tanner - Last Filed: 06/12/17 10:57> Date of Encounter: 06/12/17 Time of Encounter: 08:58 - Discharge Diagnosis (1) PNA (pneumonia) Priority: Primary Status: Acute Qualifiers: Pneumonia type: aspiration pneumonia Aspiration pneumonia type: unspecified Laterality: left Lung location: upper lobe of lung Qualified Code(s): J69.0 - Pneumonitis due to inhalation of food and vomit (2) Anemia Priority: Secondary Status: Chronic Qualifiers: Anemia type: other cause Other causes of anemia: nutritional, other Qualified Code(s): D53.8 - Other specified nutritional anemias (3) Atrial fibrillation Priority: Secondary Status: Chronic Qualifiers: Atrial fibrillation type: chronic Qualified Code(s): I48.2 - Chronic atrial fibrillation (4) Dementia Priority: Secondary Status: Chronic Qualifiers: Dementia type: Alzheimer's disease Alzheimer's disease onset: unspecified onset Dementia behavioral disturbance: without behavioral disturbance Qualified Code(s): G30.9 - Alzheimer's disease, unspecified; F02.80 - Dementia in other diseases classified elsewhere without behavioral disturbance (5) UTI (urinary tract infection) Priority: Secondary Status: Resolved Qualifiers: Urinary tract infection type: acute cystitis Hematuria presence: without hematuria Qualified Code(s): N30.00 - Acute cystitis without hematuria (6) CKD (chronic kidney disease) Priority: Secondary Status: Chronic Qualifiers: Chronic kidney disease stage: stage 4 (severe) Qualified Code(s): N18.4 - Chronic kidney disease, stage 4 (severe) (7) DVT prophylaxis Priority: Secondary Status: Acute - Discharge Medications Prescriptions: cephALEXin [Keflex] 500 mg PO BID #18 capsule metroNIDAZOLE [Flagyl] 500 mg PO TID #27 tab Home Medications: Carvedilol 12.5 mg PO BID 02/20/17 [History] Cholecalciferol (Vitamin D3) [Vitamin D3] 2,000 unit PO DAILY 02/20/17 [History] Furosemide [Lasix] 40 mg PO DAILY 02/20/17 [History] Magnesium Oxide 250 mg PO DAILY 02/20/17 [History] Multivit-Min/FA/Lycopen/Lutein [Centrum Silver Tablet] 1 tab PO DAILY 02/20/17 [ History] Potassium 99 mg PO DAILY 02/20/17 [History] Pyridoxine HCl [Vitamin B-6] 50 mg PO DAILY 02/20/17 [History] hydrALAZINE [HydrALAZINE] 25 mg PO Q6HR 02/20/17 [History] Glucosamine/D3/Boswellia Jesenia [Osteo Bi-Flex Tablet] 1 tab PO DAILY 03/22/17 [ History] Acetaminophen [Tylenol] 650 mg PO Q6HR PRN #0 tablet 03/25/17 [Rx] Omeprazole [PriLOSEC] 20 mg PO DAILY #30 cap 03/25/17 [Rx] Lutein 10 mg PO BID 06/08/17 [History] Mintox 30 ml PO BID PRN 06/08/17 [History] Ondansetron HCl [Zofran] 4 mg PO Q6H PRN 06/08/17 [History] cephALEXin [Keflex] 500 mg PO BID #18 capsule 06/12/17 [Rx] metroNIDAZOLE [Flagyl] 500 mg PO TID #27 tab 06/12/17 [Rx] Allergies/Adverse Reactions: 3 Allergy/AdvReac Type Severity Reaction Status Date / Time amlodipine Allergy Anaphylaxis Verified 06/07/17 23:08 atenolol Allergy Anaphylaxis Verified 06/07/17 23:08 benazepril Allergy See Verified 06/07/17 23:08 Comments codeine Allergy Weakness Verified 06/07/17 23:08 Erythromycin Base Allergy Anaphylaxis Verified 06/07/17 23:08 Oxycodone Allergy Anaphylaxis Verified 06/07/17 23:08 Penicillins Allergy Anaphylaxis Verified 06/07/17 23:08 Sulfanilamide Allergy Blister Verified 06/07/17 23:08 Tetanus Vaccines and Toxoid Allergy See Verified 06/07/17 23:08 Comments Procedures/tests Complete & Pending: Procedures Performed prior 72 hours Category Date Time Status EV echocardiogram Routine Y 06/10/17 15:28 Completed Date of admission: 06/08/17 01:41 Primary care physician: PCP NONE Consults: 06/08/17 02:02 Consult to Speech Therapy [CONS] Routine Comment: Evaluate, develop and implement POC Reason for Consult: speech and swallowing valuation Call Completed: No 06/08/17 02:41 Consult to Pest Control Worker [CONS] Routine Reason for SW Consult: Discharge planning 06/10/17 11:40 Consult to Occupational Therapy [CONS] Routine Comment: Evaluate, develop and implement POC Reason for Consult: weakness Consult to Physical Therapy [CONS] Routine Comment: Evaluate, develop and implement POC Reason for Consult: weakness Discharging clinician: Bhupinder Robbins Anticipated date of discharge: 06/12/17 - Patient Status Disposition: Transfer SNF Condition: Fair Functional capacity at discharge: uses cane/walker Overall status at discharge: patient is progressing back to baseline - Discharge Instructions Follow Up With: NONE,PCP [Primary Care Provider] - - Diet and Activity Activity: ambulate only with your walker, as per physical therapy, increase activity as tolerated, resume usual activities as tolerated Diet: advance to your usual diet Hospital course: Ms. Maynard is a 87 year old female is in emergency room from [facility] with a suture fever and was having hard time breathing. She was a very poor historian secondary to Alzheimer's dementia. She said that she was not in any pain, but is having a little hard time breathing. She has a significant past history of heart failure, and fibrillation, high blood pressure, falls, CKD, hypothyroidism. Vital signs emergency department or standing for a fever of 100.8, remainder of vital signs within normal limits. I was also restricted for an H&H 7.6/23.3, potassium 3.4, BUN/creatinine of 68/2.96, troponin of 0.06 , urinalysis showing signs of infection. EKG showed atrial fibrillation with a rate of 79 bpm and a left axis deviation with right bundle branch block. Chest x-ray and was found showed a large airspace opacity in the left upper lobe most consistent with bronchial pneumonia. She was admitted to medicine service for further evaluation and management of deanna on ckd, urinary tract infection, and left upper lobe pneumonia likely secondary to aspiration. During course of hospital stay, she gradually improved. She was started on Rocephin in the emergency department and urine cultures were positive for Proteus and she was transitioned to cefepime and vancomycin. Blood cultures were negative. Modified barium swallow was performed showing transient flash penetration of nectar thick liquid and she was continued on nectar thick liquids to prevent aspiration. She was again transitioned to cefepime and Flagyl. Her anemia stayed stable during course of admission. Her elevated troponin was likely in the setting of acute renal failure and was adynamic throughout hospital stay. Echocardiogram showed ejection fraction of 45-50% with indeterminate diastolic dysfunction due to atrial fibrillation. On day of discharge, patient was more alert and oriented, unsure of her baseline. She states that she is not experiencing any shortness of breath or cough at this time. Lungs are markedly improved upon auscultation. She will be sent home on Flagyl and Keflex for a total of 14 days of antibiotic therapy for aspiration pneumonia. She was evaluated by physical therapy and occupational therapy and recommended SNF upon discharge, she will be sent to [facility] in [place]. She is instructed to follow-up to emergency room with any worsening of symptoms and to follow up with her primary care physician upon discharge. She is also instructed to complete her course of antibiotics. - Time Spent with Patient Total time spent providing and/or coordinating discharge services: 40 minutes - Constitutional Vitals: Temp Pulse Resp BP Pulse Ox 98.3 F 70 17 146/63 100 06/12/17 07:30 06/12/17 07:30 06/12/17 07:30 06/12/17 07:30 06/12/17 07:30 General appearance: Present: cooperative, A&O X 1, pleasant, no acute distress Exam: Gen.: Vitals noted. No acute distress. AAOx1 HEENT: PERRL/EOMI, oropharynx clear, Normocephalic, atraumatic Neck: Supple. No adenopathy. Cardiac: Irregularly irregular, no murmur, +S1/S2 Pulmonary: Mild rales and left upper lobe, otherwise clear to auscultation bilaterally, no wheezes, rales or rhonchi, equal chest expansion Abdomen: soft, nontender, BS noted, no guarding Back: Nontender throughout. MSK: ROM intact, no joint swelling noted Extremities: no BLE edema, nontender calf, no cyanosis or clubbing Neuro: A&Ox1, moves all extremities, no focal deficits Psych: Appropriate mood and behavior - VTE Documentation of Mechanical Device: Intermittent pneumatic compression device <Bryce Thao - Last Filed: 06/12/17 18:11> Date of Encounter: 06/12/17 Procedures/tests Complete & Pending: Procedures Performed prior 72 hours Category Date Time Status EV echocardiogram Routine Y 06/10/17 15:28 Completed Date of admission: 06/08/17 01:41 Primary care physician: PCP NONE Consults: 06/08/17 02:02 Consult to Speech Therapy [CONS] Routine Comment: Evaluate, develop and implement POC Reason for Consult: speech and swallowing valuation Call Completed: No 06/08/17 02:41 Consult to Pest Control Worker [CONS] Routine Reason for SW Consult: Discharge planning 06/10/17 11:40 Consult to Occupational Therapy [CONS] Routine Comment: Evaluate, develop and implement POC Reason for Consult: weakness Consult to Physical Therapy [CONS] Routine Comment: Evaluate, develop and implement POC Reason for Consult: weakness Hospital course: Ms. Maynard is a 87 year old female - Time Spent with Patient Total time spent providing and/or coordinating discharge services: - Constitutional Vitals: Temp Pulse Resp BP Pulse Ox 97.6 F 78 16 132/66 99 06/12/17 11:48 06/12/17 11:48 06/12/17 11:48 06/12/17 11:48 06/12/17 11:48 - Attending Attestation I examined this patient and my medical decision-making was reviewed with the Resident Physician. I agree with the documented findings, disposition and treatment plan as described except to the extent set forth below.
--- NOTE | 2017-06-12 09:11 | Physician Discharge Referral ---
<Bhupinder Robbins - Last Filed: 06/12/17 09:10> [facility] Referral Info Provider in Charge after Transfer: PCP Institutional Level of Care: Skilled - Diagnosis (1) PNA (pneumonia) Priority: Primary Status: Acute (2) Anemia Priority: Secondary Status: Chronic (3) Atrial fibrillation Priority: Secondary Status: Chronic (4) Dementia Priority: Secondary Status: Chronic (5) UTI (urinary tract infection) Priority: Secondary Status: Resolved (6) CKD (chronic kidney disease) Priority: Secondary Status: Chronic (7) DVT prophylaxis Priority: Secondary Status: Acute Prognosis: Fair - Transfer Medications Prescriptions: cephALEXin [Keflex] 500 mg PO BID #18 capsule metroNIDAZOLE [Flagyl] 500 mg PO TID #27 tab Home Medications: Carvedilol 12.5 mg PO BID 02/20/17 [History] Cholecalciferol (Vitamin D3) [Vitamin D3] 2,000 unit PO DAILY 02/20/17 [History] Furosemide [Lasix] 40 mg PO DAILY 02/20/17 [History] Magnesium Oxide 250 mg PO DAILY 02/20/17 [History] Multivit-Min/FA/Lycopen/Lutein [Centrum Silver Tablet] 1 tab PO DAILY 02/20/17 [ History] Potassium 99 mg PO DAILY 02/20/17 [History] Pyridoxine HCl [Vitamin B-6] 50 mg PO DAILY 02/20/17 [History] hydrALAZINE [HydrALAZINE] 25 mg PO Q6HR 02/20/17 [History] Glucosamine/D3/Boswellia Jesenia [Osteo Bi-Flex Tablet] 1 tab PO DAILY 03/22/17 [ History] Acetaminophen [Tylenol] 650 mg PO Q6HR PRN #0 tablet 03/25/17 [Rx] Omeprazole [PriLOSEC] 20 mg PO DAILY #30 cap 03/25/17 [Rx] Lutein 10 mg PO BID 06/08/17 [History] Mintox 30 ml PO BID PRN 06/08/17 [History] Ondansetron HCl [Zofran] 4 mg PO Q6H PRN 06/08/17 [History] cephALEXin [Keflex] 500 mg PO BID #18 capsule 06/12/17 [Rx] metroNIDAZOLE [Flagyl] 500 mg PO TID #27 tab 06/12/17 [Rx] Allergies/Adverse Reactions: 3 Allergy/AdvReac Type Severity Reaction Status Date / Time amlodipine Allergy Anaphylaxis Verified 06/07/17 23:08 atenolol Allergy Anaphylaxis Verified 06/07/17 23:08 benazepril Allergy See Verified 06/07/17 23:08 Comments codeine Allergy Weakness Verified 06/07/17 23:08 Erythromycin Base Allergy Anaphylaxis Verified 06/07/17 23:08 Oxycodone Allergy Anaphylaxis Verified 06/07/17 23:08 Penicillins Allergy Anaphylaxis Verified 06/07/17 23:08 Sulfanilamide Allergy Blister Verified 06/07/17 23:08 Tetanus Vaccines and Toxoid Allergy See Verified 06/07/17 23:08 Comments - Respiratory Orders Oxygen / L per min (2) Smoking Cessation: Smoking cessation has been advised. For more information, call the PPI Quit Line at 4-407-XUMV-NOW. - Mobility Orders Chair - Rehabiliation Orders Rehab Potential: Fair Rehab Orders: Evaluation for Physical Therapy, Evaluation for Occupational Therapy, Evaluation for Speech Therapy - Diet Orders Mechanical Soft (nectar thick) CERTIFICATION: I certify that the transfer of the above named patient to an Extended Care Facility is necessary for the continuing treatment of the diagnosis listed. The above information is true and accurate reflection of patient's current condition. Confidential - Redisclosure prohibited without a patient's written consent. <Bryce Thao P - Last Filed: 06/12/17 18:11> - Respiratory Orders Smoking Cessation: Smoking cessation has been advised. For more information, call the PPI Quit Line at 3-869-SHZS-NOW. CERTIFICATION: I certify that the transfer of the above named patient to an Extended Care Facility is necessary for the continuing treatment of the diagnosis listed. The above information is true and accurate reflection of patient's current condition. Confidential - Redisclosure prohibited without a patient's written consent.
[2017-06-12 11:51] VITALS: BP 132/66
== END 2017-06-12 12:12 | DRG 177 ==
LOC: EMEROO 23:05 → SUATTDRO 06-08 01:41 → 2ANU 06-08 01:41
PROVIDERS: ADMIT Internal Medicine Hematology & Oncology; ATTEND Internal Medicine